=== PATIENT | female | born 1955 | race Two or more races ===

== ENCOUNTER 2020-12-28 13:12 | Emergency (ER) | payer OTHER, MEDICAID ==
[~2020-12-28] VITALS: Ht 152.4 cm; Wt 61.2 kg
[2020-12-28] MEDS ORDERED: ACETAMINOPHEN 500 MG TAB PO ONE (15:00)
[2020-12-28 15:03] VITALS: BP 124/74
== END 2020-12-28 16:12 | disposition home or self-care (01) ==
LOC: ER 13:12
DX: S83.91XA Sprain of unspecified site of right knee, initial encounter (principal); M11.261 Other chondrocalcinosis, right knee; E11.9 Type 2 diabetes mellitus without complications; W01.0XXA Fall on same level from slipping, tripping and stumbling without subsequent striking against object, initial encounter; Y93.01 Activity, walking, marching and hiking; Y92.89 Other specified places as the place of occurrence of the external cause; Y99.8 Other external cause status
CPT/HCPCS: 73562

== ENCOUNTER 2022-01-28 12:53 | Inpatient (IN) | payer OTHER, MEDICAID ==
[~2022-01-28] VITALS: Ht 152.4 cm; Wt 63.3 kg
[2022-01-28] MEDS ORDERED: SODIUM CHLORIDE 0.9% 500 ML IV ONE (13:30)
[2022-01-28] MEDS ORDERED: SODIUM CHLORIDE 0.9% 1,000 ML IV ONE (14:15)
[2022-01-28] MEDS ORDERED: NOREPINEPHRINE 8 MG/250ML KIT 250 ML IV SCH (14:15)
[2022-01-28 14:53] LABS: Basophils # (auto) 0 10 ^3/uL (0-0.2); Basophils % (auto) 0.2 % (0.0-2.0); Eosinophils # (auto) 0 10 ^3/uL (0-0.8); Eosinophils % (auto) 0.4 % (0.0-7.0); Hematocrit 33.2 % (36.0-46.0); Hemoglobin 11.2 g/dL (12.2-16.2); Lymphocytes # (auto) 1.2 10 ^3/uL (0.4-5.4); Lymphocytes % (auto) 13.3 % (10.0-50.0); Mean Corpuscular Hemoglobin 30.6 pg (28.0-32.0); Mean Corpuscular Hgb Conc. 33.6 g/dL (32.0-36.0); Mean Corpuscular Volume 91.1 fL (80.0-100.0); Monocytes # (auto) 0.5 10 ^3/uL (0-1.3); Monocytes % (auto) 5.4 % (0.0-12.0); Neutrophils # (auto) 7.5 10 ^3/uL (1.6-8.6); Neutrophils % (auto) 80.7 % (37.0-80.0); Red Blood Cells 3.64 10^6/uL (4.0-5.20); Red Cell Distribution Width 13.1 % (11.8-14.3); White Blood Cell 9.3 10^3/uL (4.4-10.8)
[2022-01-28 15:08] LABS: INR 1.21 (0.9-1.15); Partial Thromboplastin Time 25.4 sec (23.6-33.0)
[2022-01-28 15:12] LABS: Albumin 3.3 g/dL (3.4-5.0); Calcium 8.5 mg/dL (8.5-10.1); Potassium 4.2 mmol/L (3.5-5.1)
[2022-01-28 15:15] LABS: BUN/Creatinine Ratio 16.5
[2022-01-28 15:17] LABS: Bilirubin, Total 0.3 mg/dL (0.2-1.0); Total Protein 6.6 g/dL (6.4-8.2)
[2022-01-28] MEDS ORDERED: ASPirin 81 mg TAB PO ONE (18:30)
[2022-01-28 19:53] LABS: Urine Bacteria NONE SEEN /hpf (None Seen); Urine Blood Negative /uL (Negative); Urine Hyaline Cast MANY /lpf (0 - 2); Urine Mucus FEW (None Seen); Urine Specific Gravity 1.011 (1.001-1.035); Urine WBC <1 /hpf (0 - 5)
[2022-01-28] MEDS ORDERED: TEMAZEPAM 15 MG CAP PO PRN (21:30)
[2022-01-28] MEDS ORDERED: DEXTROSE (50%) 50ML SYRG IV PRN (21:30)
[2022-01-28] MEDS ORDERED: ACETAMINOPHEN 325 MG TAB PO PRN (21:30)
[2022-01-28] MEDS ORDERED: MORPHINE SULFATE INJ 2 MG/ml SYRG IV PRN (21:30)
[2022-01-28] MEDS ORDERED: NITROGLYCERIN 0.4 MG SL TAB SL PRN (21:30)
[2022-01-28] MEDS ORDERED: ONDANSETRON HCL 4 MG/2 ML VIAL IV PRN (21:30)
[2022-01-28] MEDS: ACCU-CHEK COMFORT CURVE STRIP VI SCH (22:00)
[2022-01-28] MEDS: InsuLIN REG 1unit/0.01ml Soln (100units/ml) SC SCH (22:00)
[2022-01-28] MEDS: ATORVASTATIN 20 MG TAB PO SCH (23:29)
[2022-01-29] VITALS (7 sets, daily range): BP systolic 114–145; BP diastolic 46–76
[2022-01-29] MEDS ORDERED: GABA300C10 PO (01:31)
[2022-01-29] MEDS ORDERED: ASPI-543 PO (01:31)
[2022-01-29 05:38] LABS: Basophils # (auto) 0 10 ^3/uL (0-0.2); Basophils % (auto) 0.5 % (0.0-2.0); Eosinophils # (auto) 0.2 10 ^3/uL (0-0.8); Eosinophils % (auto) 2.3 % (0.0-7.0); Hematocrit 34.4 % (36.0-46.0); Hemoglobin 11.9 g/dL (12.2-16.2); Lymphocytes # (auto) 2.9 10 ^3/uL (0.4-5.4); Lymphocytes % (auto) 41.4 % (10.0-50.0); Mean Corpuscular Hemoglobin 30.8 pg (28.0-32.0); Mean Corpuscular Hgb Conc. 34.5 g/dL (32.0-36.0); Mean Corpuscular Volume 89.4 fL (80.0-100.0); Monocytes # (auto) 0.6 10 ^3/uL (0-1.3); Monocytes % (auto) 7.8 % (0.0-12.0); Neutrophils # (auto) 3.4 10 ^3/uL (1.6-8.6); Red Blood Cells 3.85 10^6/uL (4.0-5.20); White Blood Cell 7.1 10^3/uL (4.4-10.8)
[2022-01-29 05:54] LABS: Potassium 3.7 mmol/L (3.5-5.1)
[2022-01-29 05:58] LABS: Albumin 3.3 g/dL (3.4-5.0)
[2022-01-29 06:05] LABS: Bilirubin, Total 0.5 mg/dL (0.2-1.0); Total Protein 6.4 g/dL (6.4-8.2)
[2022-01-29] MEDS: InsuLIN REG 1unit/0.01ml Soln (100units/ml) SC SCH ×2 (06:39→11:40)
[2022-01-29] MEDS: ACCU-CHEK COMFORT CURVE STRIP VI SCH ×2 (06:39→11:30)
[2022-01-29] MEDS: ENOXAPARIN SOD 40 MG/0.4 ML SYRINGE SC SCH (10:02)
[2022-01-29] MEDS: ASPirin 81 mg TAB PO SCH (10:02)
[2022-01-29] MEDS ORDERED: LORazepam 2MG/ML-1ML VIAL IV PRN (20:45)
[2022-01-29] MEDS: ATORVASTATIN 20 MG TAB PO SCH (20:59)
[2022-01-30 05:00] VITALS: BP 144/70
[2022-01-30 06:47] LABS: Hematocrit 36.5 % (36.0-46.0); Hemoglobin 12.6 g/dL (12.2-16.2)
[2022-01-30 06:48] LABS: INR 0.99 (0.9-1.15)
[2022-01-30 06:54] LABS: Calcium 9.1 mg/dL (8.5-10.1); Magnesium 2.2 mg/dL (1.6-2.6); Potassium 4.1 mmol/L (3.5-5.1)
[2022-01-30 06:57] LABS: BUN/Creatinine Ratio 20.3
[2022-01-30] MEDS: ENOXAPARIN SOD 40 MG/0.4 ML SYRINGE SC SCH (09:51)
[2022-01-30] MEDS: ASPirin 81 mg TAB PO SCH (09:51)
[2022-01-30 13:00] VITALS: BP 144/77
[2022-01-30] MEDS ORDERED: METF-371 PO ×2 (13:52→16:09)
[2022-01-30] MEDS ORDERED: CHOL20007 PO (13:55)
[2022-01-30] MEDS ORDERED: metFORMIN HYDROCHLORIDE 850 MG TAB PO ONE (14:00)
[2022-01-30] MEDS ORDERED: ATOR20TA50 PO (16:09)
[2022-01-30] MEDS ORDERED: ALLO300T2 PO (16:09)
[2022-01-30] MEDS ORDERED: INSLANTI SC (16:09)
[2022-01-30 16:20] VITALS: BP 104/63
[2022-01-30 16:48] VITALS: BP 104/63
== END 2022-01-30 18:20 | disposition home or self-care (01) | DRG 640 ==
LOC: EDBD 12:53 → ER 12:53 → TELE 21:24 → TELE-WESTW 23:47
PROVIDERS: ADMIT Nurse Practitioner; ATTEND Internal Medicine
DX: E86.0 Dehydration (principal); I21.A1 Myocardial infarction type 2; I95.9 Hypotension, unspecified; E11.9 Type 2 diabetes mellitus without complications; E55.9 Vitamin D deficiency, unspecified; E78.5 Hyperlipidemia, unspecified; M10.9 Gout, unspecified; Z20.822 Contact with and (suspected) exposure to COVID-19; Z83.3 Family history of diabetes mellitus
CPT/HCPCS: 36415; 70450; 70551; 71045; 74176; 80048; 80053; 80061; 81001; 82306; 82962; 83036; 83735; 83880; 84443; 84484; 85014; 85018; 85025; 85610; 85730; 86850; 86900; 86901; 93005; 93306; 93886; 95819; 96360; 96361; 99291; G0378; J1815

== ENCOUNTER → 2022-06-04 | Outpatient (CLI) | payer OTHER, MEDICAID ==
[~2022-06-04] MED LIST: ALLO300T2 PO; ASPI-543 PO; ATOR20TA50 PO; GABA300C10 PO; INSLANTI SC; METF-371 PO
[2022-06-04 09:53] LABS: Basophils # (auto) 0 10 ^3/uL (0-0.2); Basophils % (auto) 0.6 % (0.0-2.0); Eosinophils # (auto) 0.1 10 ^3/uL (0-0.8); Eosinophils % (auto) 2.9 % (0.0-7.0); Hematocrit 36.5 % (36.0-46.0); Hemoglobin 12.2 g/dL (12.2-16.2); Lymphocytes # (auto) 2.6 10 ^3/uL (0.4-5.4); Lymphocytes % (auto) 50.4 % (10.0-50.0); Mean Corpuscular Hemoglobin 30.3 pg (28.0-32.0); Mean Corpuscular Hgb Conc. 33.4 g/dL (32.0-36.0); Mean Corpuscular Volume 90.8 fL (80.0-100.0); Monocytes # (auto) 0.4 10 ^3/uL (0-1.3); Monocytes % (auto) 8.1 % (0.0-12.0); Neutrophils # (auto) 1.9 10 ^3/uL (1.6-8.6); Red Blood Cells 4.02 10^6/uL (4.0-5.20); Red Cell Distribution Width 13.4 % (11.8-14.3); White Blood Cell 5.1 10^3/uL (4.4-10.8)
[2022-06-04 10:17] LABS: Urine Bacteria NONE SEEN /hpf (None Seen); Urine Blood Negative /uL (Negative); Urine Specific Gravity 1.011 (1.001-1.035); Urine WBC <1 /hpf (0 - 5)
[2022-06-04 10:25] LABS: Potassium 3.9 mmol/L (3.5-5.1)
[2022-06-04 10:29] LABS: BUN/Creatinine Ratio 18.3
== END | disposition home or self-care (01) ==
LOC: LAB 09:26
PROVIDERS: ATTEND Student in an Organized Health Care Education/Training Program
DX: Z12.11 Encounter for screening for malignant neoplasm of colon (principal); E11.9 Type 2 diabetes mellitus without complications; M25.50 Pain in unspecified joint
CPT/HCPCS: 36415; 80048; 81001; 83036; 84550; 85025; 86038; 86431

== ENCOUNTER → 2022-10-10 | Outpatient (CLI) | payer OTHER, MEDICAID ==
[2022-10-10 10:40] LABS: Basophils # (auto) 0 10 ^3/uL (0-0.2); Basophils % (auto) 0.7 % (0.0-2.0); Eosinophils # (auto) 0.1 10 ^3/uL (0-0.8); Eosinophils % (auto) 2.3 % (0.0-7.0); Hemoglobin 12.2 g/dL (12.2-16.2); Lymphocytes # (auto) 2.5 10 ^3/uL (0.4-5.4); Mean Corpuscular Hemoglobin 29.8 pg (28.0-32.0); Mean Corpuscular Volume 90.3 fL (80.0-100.0); Monocytes # (auto) 0.4 10 ^3/uL (0-1.3); Monocytes % (auto) 7.7 % (0.0-12.0); Neutrophils # (auto) 2.3 10 ^3/uL (1.6-8.6); Neutrophils % (auto) 43.3 % (37.0-80.0); Nucleated Red Blood Cells % 0.2 %; Red Blood Cells 4.09 10^6/uL (4.0-5.20); Red Cell Distribution Width 13.5 % (11.8-14.3); White Blood Cell 5.4 10^3/uL (4.4-10.8)
[2022-10-10 10:52] LABS: Urine Bacteria FEW /hpf (None Seen); Urine Blood Negative /uL (Negative); Urine Specific Gravity 1.012 (1.001-1.035); Urine WBC 3 /hpf (0 - 5)
[2022-10-10 11:18] LABS: Albumin 3.6 g/dL (3.4-5.0); BUN/Creatinine Ratio 19.4; Bilirubin, Total 0.6 mg/dL (0.2-1.0); Potassium 4.1 mmol/L (3.5-5.1); Total Protein 7.2 g/dL (6.4-8.2)
== END | disposition home or self-care (01) ==
LOC: LAB 10:16
PROVIDERS: ATTEND Student in an Organized Health Care Education/Training Program
DX: Z12.11 Encounter for screening for malignant neoplasm of colon (principal); E11.9 Type 2 diabetes mellitus without complications; I10 Essential (primary) hypertension
CPT/HCPCS: 36415; 80053; 80061; 81001; 83036; 84443; 85025

== ENCOUNTER 2023-01-22 07:25 | Day surgery (SDC) | payer OTHER, MEDICAID ==
[2023-01-21 10:57] LABS: Basophils # (auto) 0 10 ^3/uL (0-0.2); Basophils % (auto) 0.4 % (0.0-2.0); Eosinophils # (auto) 0.1 10 ^3/uL (0-0.8); Eosinophils % (auto) 1.4 % (0.0-7.0); Hematocrit 36.3 % (36.0-46.0); Hemoglobin 12.2 g/dL (12.2-16.2); Lymphocytes # (auto) 2.4 10 ^3/uL (0.4-5.4); Lymphocytes % (auto) 42.5 % (10.0-50.0); Mean Corpuscular Hemoglobin 30.4 pg (28.0-32.0); Mean Corpuscular Hgb Conc. 33.6 g/dL (32.0-36.0); Mean Corpuscular Volume 90.6 fL (80.0-100.0); Monocytes # (auto) 0.5 10 ^3/uL (0-1.3); Monocytes % (auto) 8.5 % (0.0-12.0); Neutrophils # (auto) 2.6 10 ^3/uL (1.6-8.6); Neutrophils % (auto) 47.2 % (37.0-80.0); Red Cell Distribution Width 13.2 % (11.8-14.3); White Blood Cell 5.6 10^3/uL (4.4-10.8)
[2023-01-21 11:10] LABS: INR 1.03 (0.9-1.15); Partial Thromboplastin Time 25.1 sec (24.6-33.4)
[2023-01-21 11:47] LABS: Albumin 3.5 g/dL (3.4-5.0); Calcium 9.2 mg/dL (8.5-10.1)
[2023-01-21 11:50] LABS: BUN/Creatinine Ratio 23.9 (10.0-20.0)
[2023-01-21 11:53] LABS: Bilirubin, Total 0.4 mg/dL (0.2-1.0); Total Protein 7.7 g/dL (6.4-8.2)
[~2023-01-22] VITALS: Ht 152.4 cm; Wt 60.8 kg
[2023-01-22] VITALS (7 sets, daily range): BP systolic 117–139; BP diastolic 63–75
[~2023-01-22 07:25] MED LIST changes: +GABA-1250 PO; -GABA300C10 PO
[2023-01-22] MEDS ORDERED: IODIXANOL 320MG/ML 100ML BTL IV ONE (08:57)
[2023-01-22] MEDS ORDERED: LIDOCAINE 2%HCL (LOCAL ANESTH.) INJ 20ML MDV ONE (08:57)
[2023-01-22] MEDS ORDERED: ANGIOMAX 250 MG VIAL IV ONE (09:18)
[2023-01-22] MEDS ORDERED: MIDAZOLAM HCL 2MG/2ML 2ml VIAL (1mg/ml) ONE (09:19)
[2023-01-22] MEDS ORDERED: VERAPAMIL 2.5MG/ML INJ 2ML VIAL IV ONE (09:19)
[2023-01-22] MEDS ORDERED: SODIUM CHL 0.9% 50 ML ONE (09:19)
[2023-01-22] MEDS ORDERED: HEPARIN SODIUM (PORCINE) 5000 UNITS/ML 1ML VIAL ONE (09:19)
[2023-01-22] MEDS ORDERED: fentaNYL CITRATE 100 MCG/2 ML VL ONE (09:19)
[2023-01-22] MEDS ORDERED: CLOPIDOGREL 300 MG TAB ONE (10:10)
[2023-01-22] MEDS ORDERED: ASPirin 325 MG TAB ONE (10:10)
== END 2023-01-22 12:35 | disposition home or self-care (01) ==
LOC: CATH 07:25
PROVIDERS: ATTEND Internal Medicine
DX: I25.10 Atherosclerotic heart disease of native coronary artery without angina pectoris (principal); R94.39 Abnormal result of other cardiovascular function study; I10 Essential (primary) hypertension; E11.9 Type 2 diabetes mellitus without complications; Z79.82 Long term (current) use of aspirin; Z79.4 Long term (current) use of insulin; Z79.84 Long term (current) use of oral hypoglycemic drugs; Z79.899 Other long term (current) drug therapy
CPT/HCPCS: 36415; 76937; 80053; 82962; 85025; 85610; 85730; 93458; 93571; C1725; C1726; C1769; C1875; C1887; C1894; C9600; J0583; J1644; J2250; J3010; Q9967; 99152; 99153

== ENCOUNTER → 2023-02-03 | Outpatient (CLI) | payer OTHER ==
[2023-02-03 12:11] LABS: Calcium 9.3 mg/dL (8.5-10.1); Potassium 3.9 mmol/L (3.5-5.1)
[2023-02-03 12:14] LABS: BUN/Creatinine Ratio 25.9 (10.0-20.0)
[2023-02-03 12:27] LABS: Urine Bacteria NONE SEEN /hpf (None Seen); Urine Blood Negative /uL (Negative); Urine Specific Gravity 1.014 (1.001-1.035); Urine WBC <1 /hpf (0 - 5)
== END | disposition home or self-care (01) ==
LOC: LAB 10:39
PROVIDERS: ATTEND Student in an Organized Health Care Education/Training Program
DX: Z12.11 Encounter for screening for malignant neoplasm of colon (principal); E11.9 Type 2 diabetes mellitus without complications; I10 Essential (primary) hypertension
CPT/HCPCS: 36415; 80048; 81001; 83036

== ENCOUNTER → 2023-06-05 | Outpatient (CLI) | payer OTHER, MEDICAID ==
[2023-06-05 10:31] LABS: Basophils # (auto) 0 10 ^3/uL (0-0.2); Basophils % (auto) 0.5 % (0.0-2.0); Eosinophils # (auto) 0.4 10 ^3/uL (0-0.8); Eosinophils % (auto) 7.2 % (0.0-7.0); Hemoglobin 12.3 g/dL (12.2-16.2); Lymphocytes # (auto) 2.4 10 ^3/uL (0.4-5.4); Lymphocytes % (auto) 42.7 % (10.0-50.0); Mean Corpuscular Hemoglobin 30.6 pg (28.0-32.0); Mean Corpuscular Hgb Conc. 33.3 g/dL (32.0-36.0); Mean Corpuscular Volume 91.9 fL (80.0-100.0); Monocytes # (auto) 0.4 10 ^3/uL (0-1.3); Monocytes % (auto) 7.1 % (0.0-12.0); Neutrophils # (auto) 2.3 10 ^3/uL (1.6-8.6); Neutrophils % (auto) 42.5 % (37.0-80.0); Red Blood Cells 4.02 10^6/uL (4.0-5.20); Red Cell Distribution Width 13.8 % (11.8-14.3); White Blood Cell 5.5 10^3/uL (4.4-10.8)
[2023-06-05 11:08] LABS: Alanine Aminotransferase 35 U/L (7-40); Alkaline Phosphatase 75 U/L (46-116); Anion Gap 6 (5-15); Aspartate Aminotransferase 23 U/L (13-40); BUN/Creatinine Ratio 15.6 (10.0-20.0); Blood Urea Nitrogen 10 mg/dL (9-23); Calcium 9.6 mg/dL (8.5-10.1); Carbon Dioxide 29 mmol/L (20-30); Chloride 107 mmol/L (98-107); Glucose 86 mg/dL (74-106); Potassium 4.1 mmol/L (3.5-5.1); Sodium 142 mmol/L (136-145)
[2023-06-05 11:09] LABS: Albumin 4.3 g/dL (3.2-4.8); Bilirubin, Total 0.7 mg/dL (0.2-1.0); Total Protein 7.3 g/dL (5.7-8.2)
[2023-06-05 11:13] LABS: Creatinine, Urine 53.98 mg/dL (30.0-125.0)
[2023-06-05 11:15] LABS: Micro Albumin < 3.0 mg/L (<30.0)
[2023-06-05 11:42] LABS: Urine Bacteria NONE SEEN /hpf (None Seen); Urine Blood Negative /uL (Negative); Urine Clarity Clear (Clear); Urine Color Colorless (Yellow); Urine Protein, UAD Negative (Negative); Urine Specific Gravity 1.012 (1.001-1.035); Urine Urobilinogen Normal (Negative); Urine WBC 1 /hpf (0 - 5); Urine pH 6.5 (5.0-8.0)
== END | disposition home or self-care (01) ==
LOC: LAB 10:18
PROVIDERS: ATTEND Student in an Organized Health Care Education/Training Program
DX: E11.9 Type 2 diabetes mellitus without complications (principal); I10 Essential (primary) hypertension
CPT/HCPCS: 36415; 80053; 81001; 82043; 82570; 83036; 85025

== ENCOUNTER → 2023-07-23 | Outpatient (CLI) | payer OTHER, MEDICAID ==
[2023-07-23 10:11] LABS: Basophils # (auto) 0 10 ^3/uL (0-0.2); Basophils % (auto) 0.4 % (0.0-2.0); Eosinophils # (auto) 0.2 10 ^3/uL (0-0.8); Eosinophils % (auto) 2.9 % (0.0-7.0); Hematocrit 37.5 % (36.0-46.0); Hemoglobin 12.4 g/dL (12.2-16.2); Lymphocytes # (auto) 2.9 10 ^3/uL (0.4-5.4); Lymphocytes % (auto) 52.6 % (10.0-50.0); Mean Corpuscular Hemoglobin 30.1 pg (28.0-32.0); Mean Corpuscular Hgb Conc. 32.9 g/dL (32.0-36.0); Mean Corpuscular Volume 91.3 fL (80.0-100.0); Monocytes # (auto) 0.5 10 ^3/uL (0-1.3); Monocytes % (auto) 8.4 % (0.0-12.0); Neutrophils % (auto) 35.7 % (37.0-80.0); Nucleated Red Blood Cells % 0.1 %; Red Blood Cells 4.11 10^6/uL (4.0-5.20); Red Cell Distribution Width 13.1 % (11.8-14.3); White Blood Cell 5.6 10^3/uL (4.4-10.8)
[2023-07-23 11:04] LABS: Alanine Aminotransferase 28 U/L (7-40); Albumin 4.4 g/dL (3.2-4.8); Alkaline Phosphatase 93 U/L (46-116); Aspartate Aminotransferase 22 U/L (13-40); BUN/Creatinine Ratio 25.5 (10.0-20.0); Blood Urea Nitrogen 14 mg/dL (9-23); Calcium 9.9 mg/dL (8.5-10.1); Chloride 107 mmol/L (98-107); Glucose 70 mg/dL (74-106); Potassium 4.1 mmol/L (3.5-5.1); Sodium 140 mmol/L (136-145)
[2023-07-23 11:05] LABS: Bilirubin, Total 0.6 mg/dL (0.2-1.0); Total Protein 7.2 g/dL (5.7-8.2)
[2023-07-23 11:29] LABS: T3 Total 1.11 ng/mL (0.60-1.81)
[2023-07-23 12:08] LABS: Follicle Stimulating Hormone 38.17 IU/L (SEE BELOW)
[2023-07-23 12:14] LABS: Anion Gap 6 (5-15); Carbon Dioxide 27 mmol/L (20-30)
[2023-07-24 07:06] LABS: Estradiol <5.0 pg/mL (0.0-54.7); Thyroid Peroxidase (TPO) Ab 9 IU/mL (0-34); Thyroxine (T4) 8.3 ug/dL (4.5-12.0)
== END | disposition home or self-care (01) ==
LOC: LAB 09:51
PROVIDERS: ATTEND Obstetrics & Gynecology
DX: Z13.220 Encounter for screening for lipoid disorders (principal); E55.9 Vitamin D deficiency, unspecified; E53.9 Vitamin B deficiency, unspecified; E34.9 Endocrine disorder, unspecified; E07.89 Other specified disorders of thyroid; N95.1 Menopausal and female climacteric states
CPT/HCPCS: 36415; 80053; 82306; 82607; 82670; 83001; 84144; 84403; 84436; 84443; 84480; 85025; 86376

== ENCOUNTER → 2023-09-12 | Outpatient (CLI) | payer OTHER, MEDICAID ==
[2023-09-12 11:05] LABS: Basophils # (auto) 0 10 ^3/uL (0-0.2); Basophils % (auto) 0.5 % (0.0-2.0); Eosinophils # (auto) 0.1 10 ^3/uL (0-0.8); Eosinophils % (auto) 2.6 % (0.0-7.0); Hematocrit 37.1 % (36.0-46.0); Hemoglobin 12.3 g/dL (12.2-16.2); Lymphocytes # (auto) 2.3 10 ^3/uL (0.4-5.4); Lymphocytes % (auto) 49.4 % (10.0-50.0); Mean Corpuscular Hemoglobin 30.6 pg (28.0-32.0); Mean Corpuscular Hgb Conc. 33.3 g/dL (32.0-36.0); Mean Corpuscular Volume 91.9 fL (80.0-100.0); Monocytes # (auto) 0.4 10 ^3/uL (0-1.3); Monocytes % (auto) 7.8 % (0.0-12.0); Neutrophils # (auto) 1.9 10 ^3/uL (1.6-8.6); Neutrophils % (auto) 39.7 % (37.0-80.0); Nucleated Red Blood Cells % 0.1 %; Red Blood Cells 4.03 10^6/uL (4.0-5.20); Red Cell Distribution Width 13.1 % (11.8-14.3); White Blood Cell 4.7 10^3/uL (4.4-10.8)
[2023-09-12 11:20] LABS: Urine Blood Negative /uL (Negative); Urine Clarity Clear (Clear); Urine Color Colorless (Yellow); Urine Protein, UAD Negative (Negative); Urine Specific Gravity 1.009 (1.001-1.035); Urine Urobilinogen Normal (Negative)
[2023-09-12 12:02] LABS: Alanine Aminotransferase 36 U/L (7-40); Albumin 4.3 g/dL (3.2-4.8); Alkaline Phosphatase 96 U/L (46-116); Anion Gap 5 (5-15); Aspartate Aminotransferase 26 U/L (13-40); BUN/Creatinine Ratio 16.7 (10.0-20.0); Bilirubin, Total 0.7 mg/dL (0.2-1.0); Blood Urea Nitrogen 10 mg/dL (9-23); Carbon Dioxide 29 mmol/L (20-30); Chloride 108 mmol/L (98-107); Cholesterol 153 mg/dL (< 200); Glucose 77 mg/dL (74-106); HDL Cholesterol 56 mg/dL (40-59); LDL Cholesterol 86 mg/dL (< 100); Potassium 4.2 mmol/L (3.5-5.1); Sodium 142 mmol/L (136-145); Triglycerides 78 mg/dL (< 150)
[2023-09-12 12:03] LABS: Total Protein 7.3 g/dL (5.7-8.2)
== END | disposition home or self-care (01) ==
LOC: LAB 10:53
DX: E11.42 Type 2 diabetes mellitus with diabetic polyneuropathy (principal); E11.65 Type 2 diabetes mellitus with hyperglycemia
CPT/HCPCS: 36415; 80053; 80061; 81003; 83036; 85025

== ENCOUNTER → 2023-12-08 | Outpatient (CLI) | payer OTHER, MEDICAID ==
[2023-12-08 10:54] LABS: Urine Bacteria None Seen /hpf (None Seen)
[2023-12-08 11:09] LABS: Basophils # (auto) 0 10 ^3/uL (0-0.2); Basophils % (auto) 0.3 % (0.0-2.0); Eosinophils # (auto) 0.1 10 ^3/uL (0-0.8); Eosinophils % (auto) 1.1 % (0.0-7.0); Hematocrit 37.3 % (36.0-46.0); Hemoglobin 12.2 g/dL (12.2-16.2); Lymphocytes # (auto) 4.3 10 ^3/uL (0.4-5.4); Lymphocytes % (auto) 49.5 % (10.0-50.0); Mean Corpuscular Hemoglobin 30.3 pg (28.0-32.0); Mean Corpuscular Hgb Conc. 32.7 g/dL (32.0-36.0); Mean Corpuscular Volume 92.7 fL (80.0-100.0); Monocytes # (auto) 0.6 10 ^3/uL (0-1.3); Monocytes % (auto) 7.2 % (0.0-12.0); Neutrophils # (auto) 3.7 10 ^3/uL (1.6-8.6); Neutrophils % (auto) 41.9 % (37.0-80.0); Nucleated Red Blood Cells % 0.1 %; Red Blood Cells 4.03 10^6/uL (4.0-5.20); Red Cell Distribution Width 13.9 % (11.8-14.3); White Blood Cell 8.8 10^3/uL (4.4-10.8)
[2023-12-08 11:35] LABS: Urine Blood Negative /uL (Negative); Urine Clarity Clear (Clear); Urine Color Light-Yellow (Yellow); Urine Protein, UAD Negative (Negative); Urine Specific Gravity 1.012 (1.001-1.035); Urine Urobilinogen Normal (Negative); Urine WBC <1 /hpf (0 - 5)
[2023-12-08 11:47] LABS: Creatinine, Urine 39.67 mg/dL (30.0-125.0)
[2023-12-08 11:50] LABS: Alanine Aminotransferase 24 U/L (7-40); Albumin 4.5 g/dL (3.2-4.8); Alkaline Phosphatase 88 U/L (46-116); Anion Gap 7 (5-15); Aspartate Aminotransferase 20 U/L (13-40); BUN/Creatinine Ratio 22.4 (10.0-20.0); Blood Urea Nitrogen 13 mg/dL (9-23); Calcium 10.2 mg/dL (8.5-10.1); Carbon Dioxide 27 mmol/L (20-30); Chloride 105 mmol/L (98-107); Glucose 83 mg/dL (74-106); LDL Cholesterol 95 mg/dL (< 100); Micro Albumin < 3.0 mg/L (<30.0); Potassium 3.9 mmol/L (3.5-5.1); Sodium 139 mmol/L (136-145); Triglycerides 71 mg/dL (< 150)
[2023-12-08 11:51] LABS: Bilirubin, Total 0.6 mg/dL (0.2-1.0); Cholesterol 180 mg/dL (< 200); HDL Cholesterol 69 mg/dL (40-59); Total Protein 7.4 g/dL (5.7-8.2)
== END | disposition home or self-care (01) ==
LOC: LAB 10:44
PROVIDERS: ATTEND Student in an Organized Health Care Education/Training Program
DX: I10 Essential (primary) hypertension (principal); E11.9 Type 2 diabetes mellitus without complications
CPT/HCPCS: 36415; 80053; 80061; 81001; 82043; 82570; 83036; 85025

== ENCOUNTER → 2024-01-26 | Outpatient (CLI) | payer OTHER ==
[2024-01-26 10:10] LABS: Basophils # (auto) 0 10 ^3/uL (0-0.2); Basophils % (auto) 0.6 % (0.0-2.0); Eosinophils # (auto) 0.1 10 ^3/uL (0-0.8); Hematocrit 34.8 % (36.0-46.0); Hemoglobin 11.7 g/dL (12.2-16.2); Lymphocytes # (auto) 1.8 10 ^3/uL (0.4-5.4); Lymphocytes % (auto) 37.4 % (10.0-50.0); Mean Corpuscular Hemoglobin 31.7 pg (28.0-32.0); Mean Corpuscular Hgb Conc. 33.7 g/dL (32.0-36.0); Mean Corpuscular Volume 94.3 fL (80.0-100.0); Monocytes # (auto) 0.4 10 ^3/uL (0-1.3); Monocytes % (auto) 8.1 % (0.0-12.0); Neutrophils # (auto) 2.5 10 ^3/uL (1.6-8.6); Neutrophils % (auto) 51.9 % (37.0-80.0); Red Blood Cells 3.69 10^6/uL (4.0-5.20); White Blood Cell 4.9 10^3/uL (4.4-10.8)
[2024-01-26 11:00] LABS: Follicle Stimulating Hormone 23.39 IU/L (SEE BELOW)
== END | disposition home or self-care (01) ==
LOC: LAB 09:45
PROVIDERS: ATTEND Obstetrics & Gynecology
DX: E07.89 Other specified disorders of thyroid (principal); E34.9 Endocrine disorder, unspecified; E53.9 Vitamin B deficiency, unspecified; E55.9 Vitamin D deficiency, unspecified; N95.1 Menopausal and female climacteric states
CPT/HCPCS: 36415; 82670; 83001; 84144; 84403; 85025

== ENCOUNTER 2024-02-09 06:01 | Inpatient (IN) | payer OTHER ==
[2024-02-06 11:19] LABS: Basophils # (auto) 0 10 ^3/uL (0-0.2); Basophils % (auto) 0.5 % (0.0-2.0); Eosinophils # (auto) 0.1 10 ^3/uL (0-0.8); Eosinophils % (auto) 1.5 % (0.0-7.0); Hematocrit 37.1 % (36.0-46.0); Hemoglobin 12.4 g/dL (12.2-16.2); Lymphocytes # (auto) 2.4 10 ^3/uL (0.4-5.4); Mean Corpuscular Hemoglobin 31.2 pg (28.0-32.0); Mean Corpuscular Hgb Conc. 33.6 g/dL (32.0-36.0); Monocytes # (auto) 0.5 10 ^3/uL (0-1.3); Monocytes % (auto) 8.3 % (0.0-12.0); Neutrophils # (auto) 2.7 10 ^3/uL (1.6-8.6); Neutrophils % (auto) 47.7 % (37.0-80.0); Nucleated Red Blood Cells % 0.1 %; Red Blood Cells 3.98 10^6/uL (4.0-5.20); Red Cell Distribution Width 13.8 % (11.8-14.3); White Blood Cell 5.7 10^3/uL (4.4-10.8)
[2024-02-06 11:31] LABS: Urine Bacteria FEW /hpf (None Seen); Urine Blood Negative /uL (Negative); Urine Clarity Clear (Clear); Urine Color Light-Yellow (Yellow); Urine Protein, UAD Negative (Negative); Urine Specific Gravity 1.012 (1.001-1.035); Urine Urobilinogen Normal (Negative); Urine WBC <1 /hpf (0 - 5); Urine pH 5.5 (5.0-9.0)
[2024-02-06 11:40] LABS: Alanine Aminotransferase 23 U/L (7-40); Albumin 4.4 g/dL (3.2-4.8); Alkaline Phosphatase 78 U/L (46-116); Anion Gap 5 (5-15); Aspartate Aminotransferase 15 U/L (13-40); BUN/Creatinine Ratio 15.2 (10.0-20.0); Bilirubin, Total 0.5 mg/dL (0.2-1.0); Blood Urea Nitrogen 10 mg/dL (9-23); Calcium 10.3 mg/dL (8.5-10.1); Carbon Dioxide 26 mmol/L (20-30); Chloride 108 mmol/L (98-107); Glucose 157 mg/dL (74-106); Potassium 4.4 mmol/L (3.5-5.1); Sodium 139 mmol/L (136-145); Total Protein 7.3 g/dL (5.7-8.2)
[2024-02-06 11:45] LABS: INR 1.05 (0.9-1.15); Partial Thromboplastin Time 24.5 SEC (24.5-34.5); Prothrombin Time 11.1 sec (9.3-11.8)
[~2024-02-09] VITALS: Ht 152.4 cm; Wt 69.1 kg
[~2024-02-09 06:01] MED LIST changes: +CIPR500T4 PO; +HYDR-4902 PO; +TRAM50TA2 PO
[2024-02-09] MEDS: ceFAZolin 2 GM/D5W50ml 50 ML IV ONE (07:01)
[2024-02-09] MEDS: SUCCINYLCHOLINE CHLORIDE 20 MG/ML 10ML VIAL IV ONE (07:03)
[2024-02-09] MEDS: ROCURONIUM 10MG/ML 10ML VIAL IV ONE (07:03)
[2024-02-09] MEDS ORDERED: HYDROmorphone HCL 2 MG/ML VL/or syr ONE (07:08)
[2024-02-09] MEDS ORDERED: NEOSTIGMINE 1 MG/ML INJ (10mg/10ML VIAL) ONE (07:08)
[2024-02-09] MEDS ORDERED: PROPOFOL 10 MG/ML 20 ML IV ONE (07:08)
[2024-02-09] MEDS ORDERED: ONDANSETRON HCL 4 MG/2 ML VIAL ONE (07:08)
[2024-02-09] MEDS ORDERED: KETAMINE 50mg/ML 1ml syringe ONE (07:08)
[2024-02-09] MEDS ORDERED: GLYCOPYRROLATE 0.2 MG/ML 1ML VIAL ONE (07:08)
[2024-02-09] MEDS ORDERED: fentaNYL CITRATE 5 ML ONE (07:08)
[2024-02-09] MEDS ORDERED: SODIUM CHLORIDE LOCK 40 ML ONE (07:08)
[2024-02-09] MEDS ORDERED: MIDAZOLAM HCL 2MG/2ML 2ml VIAL (1mg/ml) ONE (07:08)
[2024-02-09] MEDS ORDERED: LIDOCAINE 1% INJ PF 5ML AMP ONE (07:08)
[2024-02-09] MEDS: LIDOCAINE 1% (LOCAL ANESTH.) PF 5ml SDV ONE (07:09)
[2024-02-09] MEDS: LIDOCAINE 2% JELLY 11ml (GLYDO) ONE (07:10)
[2024-02-09] MEDS: ACCU-CHEK COMFORT CURVE STRIP VI ONE (07:30)
[2024-02-09] MEDS ORDERED: MORPHINE SULFATE INJ 2 MG/ml SYRG IV PRN ×2 (07:30→08:15)
[2024-02-09] MEDS ORDERED: HYDROmorphone HCL 2 MG/ML VL/or syr IV PRN (07:30)
[2024-02-09] MEDS ORDERED: fentaNYL CITRATE 100 MCG/2 ML VL IV PRN (07:30)
[2024-02-09] MEDS: METOCLOPRAMIDE HCL 5MG/ml INJ 2ml VIAL IV ONE (07:30)
[2024-02-09] MEDS ORDERED: LIDOCAINE W/ EPINEPHRINE 1% 20ML VIAL ONE (08:13)
[2024-02-09] MEDS: ceFAZolin 1GM/50ML 50 ML IV ONE (08:15)
[2024-02-09] MEDS: SODIUM CHLORIDE 0.9% 1,000 ML IV SCH (08:15)
[2024-02-09] MEDS ORDERED: ACETAMINOPHEN 500 MG TAB PO PRN (08:15)
[2024-02-09] MEDS ORDERED: NITROGLYCERIN 0.4 MG SL TAB SL PRN (08:15)
[2024-02-09] MEDS: BUPIVACAINE 0.25% INJ 50ML VIAL ONE (09:53)
[2024-02-09] MEDS: METHYLENE BLUE 0.5% 5MG/ML 10ml AMP IV ONE (09:54)
[2024-02-09] MEDS: ASPirin-EC 81 mg tab PO SCH (10:00)
[2024-02-09] MEDS: GABAPENTIN 300 MG CAP PO SCH (10:00)
[2024-02-09] MEDS: ALLOPURINOL 100 MG TAB PO SCH (10:00)
[2024-02-09] MEDS ORDERED: MEPERIDINE HCL (25 MG/ML) 1ML VIAL ONE (10:27)
[2024-02-09] MEDS: CONJ ESTROGENS 0.625MG/GM VAG CRM 30GM PV ONE (10:49)
[2024-02-09 11:12] VITALS: PULSE 79; RESP 10; O2SAT 94
[2024-02-09] MEDS: HYDROmorphone HCL 2 MG/ML VL/or syr ONE (12:30)
[2024-02-09] MEDS: HYDROmorphone HCL 2 MG/ML VL/or syr IV PRN (13:00)
[2024-02-09] MEDS: traMADol HCL 50 MG TAB PO PRN (14:09)
[2024-02-09 16:22] VITALS: BP 137/70; PULSE 89; RESP 18; TEMP 97.8; O2SAT 96
[2024-02-09] MEDS: MORPHINE SULFATE 4 MG/ML SYR/VIAL IV PRN (18:04)
[2024-02-09 20:00] VITALS: PULSE 87; RESP 16; O2SAT 98
[2024-02-09 20:57] VITALS: BP 118/57; PULSE 70; RESP 17; TEMP 97.6; O2SAT 96
[2024-02-09] MEDS: metFORMIN HYDROCHLORIDE 500 MG TAB PO SCH (22:00)
[2024-02-09] MEDS: ONDANSETRON HCL 4 MG/2 ML VIAL IV PRN (22:30)
[2024-02-09] MEDS: INSULIN LANTUS (GLARGINE) 1 /0.01ml (100units/ml) SC SCH (22:37)
[2024-02-10] MEDS ORDERED: DEXTROSE (50%) 50ML SYRG IV PRN (00:30)
[2024-02-10 04:49] VITALS: BP 104/54; PULSE 74; RESP 17; TEMP 97.4; O2SAT 95
[2024-02-10] MEDS: ACCU-CHEK COMFORT CURVE STRIP VI SCH (05:40)
[2024-02-10] MEDS: InsuLIN REG 1unit/0.01ml Soln (100units/ml) SC SCH (05:41)
[2024-02-10 09:00] VITALS: BP 101/51; PULSE 74; RESP 20; TEMP 98.1; O2SAT 94
[2024-02-10 13:00] VITALS: BP 115/76; PULSE 111; RESP 20; TEMP 98.1; O2SAT 96
[2024-02-10 17:00] VITALS: BP 132/58; PULSE 81; RESP 20; TEMP 98; O2SAT 95
[2024-02-10] MEDS ORDERED: METF-929 PO (17:26)
[2024-02-10] MEDS ORDERED: DOCU-94 PO (17:31)
[2024-02-10] MEDS ORDERED: ESTR0.1C5 VA (17:31)
[2024-02-10] MEDS ORDERED: PROG200C21 PO (17:31)
[2024-02-10 20:00] VITALS: RESP 16; O2SAT 98
[2024-02-10 22:00] VITALS: BP 125/66; PULSE 88; RESP 17; TEMP 98.4; O2SAT 95
[2024-02-11 01:00] VITALS: BP 121/62; PULSE 84; RESP 16; TEMP 98.1; O2SAT 95
[2024-02-11 05:00] VITALS: BP 140/64; PULSE 86; RESP 16; TEMP 98.7; O2SAT 95
[2024-02-11 07:11] LABS: Basophils # (auto) 0 10 ^3/uL (0-0.2); Basophils % (auto) 0.3 % (0.0-2.0); Eosinophils # (auto) 0 10 ^3/uL (0-0.8); Eosinophils % (auto) 0.3 % (0.0-7.0); Hematocrit 33.1 % (36.0-46.0); Hemoglobin 11.4 g/dL (12.2-16.2); Lymphocytes # (auto) 1.7 10 ^3/uL (0.4-5.4); Lymphocytes % (auto) 16.4 % (10.0-50.0); Mean Corpuscular Hemoglobin 32.2 pg (28.0-32.0); Mean Corpuscular Hgb Conc. 34.5 g/dL (32.0-36.0); Mean Corpuscular Volume 93.3 fL (80.0-100.0); Monocytes # (auto) 0.6 10 ^3/uL (0-1.3); Monocytes % (auto) 6.3 % (0.0-12.0); Neutrophils # (auto) 7.8 10 ^3/uL (1.6-8.6); Neutrophils % (auto) 76.7 % (37.0-80.0); Red Blood Cells 3.55 10^6/uL (4.0-5.20); Red Cell Distribution Width 13.4 % (11.8-14.3); White Blood Cell 10.1 10^3/uL (4.4-10.8)
[2024-02-11 07:16] LABS: Alanine Aminotransferase 19 U/L (7-40); Alkaline Phosphatase 67 U/L (46-116); Anion Gap 5 (5-15); Aspartate Aminotransferase 15 U/L (13-40); Bilirubin, Total 0.7 mg/dL (0.2-1.0); Calcium 9.5 mg/dL (8.5-10.1); Carbon Dioxide 26 mmol/L (20-30); Chloride 105 mmol/L (98-107); Glucose 193 mg/dL (74-106); Potassium 3.7 mmol/L (3.5-5.1); Sodium 136 mmol/L (136-145); Total Protein 6.6 g/dL (5.7-8.2)
[2024-02-11 07:18] LABS: Blood Urea Nitrogen < 5 mg/dL (9-23)
[2024-02-11 09:00] VITALS: BP 139/69; PULSE 87; RESP 20; TEMP 98.5; O2SAT 94
[2024-02-11 13:00] VITALS: BP 118/54; PULSE 81; RESP 20; TEMP 98.4; O2SAT 95
[2024-02-11] MEDS ORDERED: DOCUSATE SOD 100 MG CAP PO PRN (15:30)
[2024-02-11 16:33] VITALS: BP 112/58; PULSE 81; RESP 18; TEMP 98.6; O2SAT 94
== END 2024-02-11 18:00 | disposition home or self-care (01) | DRG 743 ==
LOC: SUR 06:01 → OVERFLOW 08:18 → WEST WING 14:45
PROVIDERS: ADMIT Obstetrics & Gynecology; ATTEND Internal Medicine
PROC: 0UT24ZZ Resection of Bilateral Ovaries, Percutaneous Endoscopic Approach (ICD-10-PCS; 2024-02-09)
PROC: 0UT94ZL Resection of Uterus, Supracervical, Percutaneous Endoscopic Approach (ICD-10-PCS; 2024-02-09)
PROC: 0TJB8ZZ Inspection of Bladder, Via Natural or Artificial Opening Endoscopic (ICD-10-PCS; 2024-02-09)
PROC: 0JUC3JZ Supplement of Pelvic Region Subcutaneous Tissue and Fascia with Synthetic Substitute, Percutaneous Approach (ICD-10-PCS; 2024-02-09)
PROC: 0UT74ZZ Resection of Bilateral Fallopian Tubes, Percutaneous Endoscopic Approach (ICD-10-PCS; 2024-02-09)
PROC: 8E0W4CZ Robotic Assisted Procedure of Trunk Region, Percutaneous Endoscopic Approach (ICD-10-PCS; 2024-02-09)
PROC: 0TSD4ZZ Reposition Urethra, Percutaneous Endoscopic Approach (ICD-10-PCS; principal; 2024-02-09 07:53)
DX: N81.4 Uterovaginal prolapse, unspecified (principal); E11.9 Type 2 diabetes mellitus without complications; M10.9 Gout, unspecified; E78.5 Hyperlipidemia, unspecified
CPT/HCPCS: 36415; 80053; 81001; 82962; 83036; 85025; 85610; 85730; 86850; 86900; 86901; 97110; 97116; 97163; 97530; G0378; J0330; J1815; J2250; J2405; J2704; J3490

== ENCOUNTER → 2024-06-01 | Outpatient (CLI) | payer OTHER ==
[~2024-06-01] MED LIST changes: +DOCU-94 PO; +ESTR0.1C5 VA; -METF-371 PO; +METF-929 PO; +PROG200C21 PO
[2024-06-01 10:55] LABS: Urine Bacteria None Seen /hpf (None Seen)
[2024-06-01 11:01] LABS: Basophils # (auto) 0 10 ^3/uL (0-0.2); Basophils % (auto) 0.5 % (0.0-2.0); Eosinophils # (auto) 0.2 10 ^3/uL (0-0.8); Hematocrit 35.9 % (36.0-46.0); Hemoglobin 12.2 g/dL (12.2-16.2); Lymphocytes # (auto) 2.8 10 ^3/uL (0.4-5.4); Lymphocytes % (auto) 48.5 % (10.0-50.0); Mean Corpuscular Hemoglobin 31.1 pg (28.0-32.0); Mean Corpuscular Volume 91.5 fL (80.0-100.0); Monocytes # (auto) 0.4 10 ^3/uL (0-1.3); Monocytes % (auto) 7.7 % (0.0-12.0); Neutrophils # (auto) 2.3 10 ^3/uL (1.6-8.6); Neutrophils % (auto) 40.3 % (37.0-80.0); Platelet Count (auto) 264 10^3/uL (140-450); Red Blood Cells 3.92 10^6/uL (4.0-5.20); Red Cell Distribution Width 14.6 % (11.8-14.3); White Blood Cell 5.7 10^3/uL (4.4-10.8)
[2024-06-01 11:36] LABS: Alanine Aminotransferase 27 U/L (7-40); Albumin 4.2 g/dL (3.2-4.8); Alkaline Phosphatase 69 U/L (46-116); Anion Gap 5 (5-15); Aspartate Aminotransferase 20 U/L (13-40); BUN/Creatinine Ratio 14.5 (10.0-20.0); Blood Urea Nitrogen 9 mg/dL (9-23); Calcium 9.9 mg/dL (8.7-10.4); Carbon Dioxide 27 mmol/L (20-31); Chloride 110 mmol/L (98-107); Cholesterol 164 mg/dL (< 200); Glucose 75 mg/dL (74-106); HDL Cholesterol 52 mg/dL (40-59); LDL Cholesterol 102 mg/dL (< 100); Sodium 142 mmol/L (136-145); Triglycerides 101 mg/dL (< 150)
[2024-06-01 11:37] LABS: Bilirubin, Total 0.6 mg/dL (0.2-1.0); Total Protein 7.1 g/dL (5.7-8.2)
[2024-06-01 11:38] LABS: Creatinine, Urine 54.59 mg/dL (30.0-125.0)
[2024-06-01 11:41] LABS: Micro Albumin < 3.0 mg/L (<30.0)
[2024-06-01 11:44] LABS: Urine Blood Negative /uL (Negative); Urine Clarity Clear (Clear); Urine Color Light-Yellow (Yellow); Urine Protein, UAD Negative (Negative); Urine Specific Gravity 1.009 (1.001-1.035); Urine Urobilinogen Normal (Negative); Urine WBC 1 /hpf (0 - 5)
== END | disposition home or self-care (01) ==
LOC: LAB 10:43
PROVIDERS: ATTEND Student in an Organized Health Care Education/Training Program
DX: I10 Essential (primary) hypertension (principal); E11.9 Type 2 diabetes mellitus without complications
CPT/HCPCS: 36415; 80053; 80061; 81001; 82043; 82570; 83036; 85025

== ENCOUNTER → 2024-06-09 | Outpatient (CLI) | payer OTHER | END | disposition home or self-care (01) | LOC: LAB 12:41 | PROVIDERS: ATTEND Student in an Organized Health Care Education/Training Program | DX: Z12.11 Encounter for screening for malignant neoplasm of colon (principal); I10 Essential (primary) hypertension; E11.9 Type 2 diabetes mellitus without complications | CPT/HCPCS: 82274 ==

== ENCOUNTER → 2024-10-29 | Outpatient (CLI) | payer OTHER ==
[2024-10-29 12:17] LABS: Basophils # (auto) 0 10 ^3/uL (0-0.2); Basophils % (auto) 0.4 % (0.0-2.0); Eosinophils # (auto) 0.1 10 ^3/uL (0-0.8); Eosinophils % (auto) 1.2 % (0.0-7.0); Hematocrit 36.4 % (36.0-46.0); Hemoglobin 12.3 g/dL (12.2-16.2); Lymphocytes # (auto) 2.7 10 ^3/uL (0.4-5.4); Lymphocytes % (auto) 41.3 % (10.0-50.0); Mean Corpuscular Hemoglobin 30.3 pg (28.0-32.0); Mean Corpuscular Hgb Conc. 33.9 g/dL (32.0-36.0); Mean Corpuscular Volume 89.5 fL (80.0-100.0); Monocytes # (auto) 0.5 10 ^3/uL (0-1.3); Monocytes % (auto) 7.9 % (0.0-12.0); Neutrophils # (auto) 3.2 10 ^3/uL (1.6-8.6); Neutrophils % (auto) 49.2 % (37.0-80.0); Nucleated Red Blood Cells % 0.1 %; Platelet Count (auto) 295 10^3/uL (140-450); Red Blood Cells 4.06 10^6/uL (4.0-5.20); Red Cell Distribution Width 14.1 % (11.8-14.3); White Blood Cell 6.4 10^3/uL (4.4-10.8)
[2024-10-29 12:58] LABS: Alanine Aminotransferase 28 U/L (7-40); Albumin 4.5 g/dL (3.2-4.8); Alkaline Phosphatase 91 U/L (46-116); Anion Gap 7 (5-15); Aspartate Aminotransferase 19 U/L (13-40); BUN/Creatinine Ratio 14.1 (10.0-20.0); Bilirubin, Total 0.7 mg/dL (0.2-1.0); Blood Urea Nitrogen 10 mg/dL (9-23); Calcium 10.1 mg/dL (8.7-10.4); Carbon Dioxide 27 mmol/L (20-31); Chloride 104 mmol/L (98-107); Cholesterol 155 mg/dL (< 200); HDL Cholesterol 50 mg/dL (40-59); LDL Cholesterol 95 mg/dL (< 100); Potassium 4.2 mmol/L (3.5-5.1); Sodium 138 mmol/L (136-145); Total Protein 7.3 g/dL (5.7-8.2); Triglycerides 94 mg/dL (< 150)
[2024-10-29 13:06] LABS: Glucose 174 mg/dL (74-106)
[2024-10-29 13:12] LABS: Creatinine, Urine 27.54 mg/dL (30.0-125.0)
[2024-10-29 13:17] LABS: Micro Albumin < 3.0 mg/L (<30.0)
== END | disposition home or self-care (01) ==
LOC: LAB 11:42
PROVIDERS: ATTEND Student in an Organized Health Care Education/Training Program
DX: I10 Essential (primary) hypertension (principal); E11.9 Type 2 diabetes mellitus without complications; D50.9 Iron deficiency anemia, unspecified
CPT/HCPCS: 36415; 80053; 80061; 82043; 82306; 82570; 82607; 83036; 84443; 85025

== ENCOUNTER 2025-02-04 10:25 | Outpatient (CLI) | payer OTHER ==
[2025-02-04 10:48] LABS: Basophils # (auto) 0 10 ^3/uL (0-0.2); Basophils % (auto) 0.5 % (0.0-2.0); Eosinophils # (auto) 0.2 10 ^3/uL (0-0.8); Eosinophils % (auto) 2.6 % (0.0-7.0); Hematocrit 36.4 % (36.0-46.0); Hemoglobin 12.4 g/dL (12.2-16.2); Lymphocytes # (auto) 2.9 10 ^3/uL (0.4-5.4); Lymphocytes % (auto) 47.1 % (10.0-50.0); Mean Corpuscular Hemoglobin 30.7 pg (28.0-32.0); Mean Corpuscular Volume 90.3 fL (80.0-100.0); Monocytes # (auto) 0.5 10 ^3/uL (0-1.3); Monocytes % (auto) 7.7 % (0.0-12.0); Neutrophils # (auto) 2.6 10 ^3/uL (1.6-8.6); Neutrophils % (auto) 42.1 % (37.0-80.0); Platelet Count (auto) 281 10^3/uL (140-450); Red Blood Cells 4.03 10^6/uL (4.0-5.20); Red Cell Distribution Width 14.3 % (11.8-14.3); White Blood Cell 6.2 10^3/uL (4.4-10.8)
[2025-02-04 11:19] LABS: Alanine Aminotransferase 18 U/L (7-40); Albumin 4.2 g/dL (3.2-4.8); Alkaline Phosphatase 61 U/L (46-116); Anion Gap 9 (5-15); Aspartate Aminotransferase 20 U/L (<34); BUN/Creatinine Ratio 18.3 (10.0-20.0); Bilirubin, Total 0.5 mg/dL (0.2-1.0); Blood Urea Nitrogen 11 mg/dL (9-23); Calcium 9.9 mg/dL (8.7-10.4); Carbon Dioxide 24 mmol/L (20-31); Cholesterol 142 mg/dL (< 200); HDL Cholesterol 46 mg/dL (40-59); LDL Cholesterol 87 mg/dL (< 100); Potassium 3.9 mmol/L (3.5-5.1); Sodium 142 mmol/L (136-145); Triglycerides 84 mg/dL (< 150)
[2025-02-04 11:23] LABS: Chloride 109 mmol/L (98-107); Follicle Stimulating Hormone 7.68 IU/L (SEE BELOW); Free T3 2.73 pg/mL (2.3-4.2); Glucose 73 mg/dL (74-106)
[2025-02-05 08:07] LABS: Thyroxine (T4) 7.1 ug/dL (4.5-12.0)
[2025-02-05 11:07] LABS: Testosterone 331 ng/dL (3-67); Thyroid Peroxidase (TPO) Ab <9 IU/mL (0-34)
[2025-02-08 08:06] LABS: Free Testosterone(Direct) 0.8 pg/mL (0.0-4.2)
== END 2025-02-04 17:00 | disposition home or self-care (01) ==
LOC: LAB 10:25
PROVIDERS: ATTEND Obstetrics & Gynecology
DX: N95.1 Menopausal and female climacteric states (principal); E53.9 Vitamin B deficiency, unspecified; E07.89 Other specified disorders of thyroid; E34.9 Endocrine disorder, unspecified; E55.9 Vitamin D deficiency, unspecified; Z13.220 Encounter for screening for lipoid disorders
CPT/HCPCS: 36415; 80053; 80061; 82306; 82607; 82670; 83001; 84144; 84402; 84403; 84436; 84443; 84481; 85025; 86376

== ENCOUNTER 2025-04-06 09:39 | Outpatient (CLI) | payer OTHER ==
[2025-04-06 10:42] LABS: Hematocrit 37.6 % (36.0-46.0); Hemoglobin 12.5 g/dL (12.2-16.2); Mean Corpuscular Hemoglobin 30.5 pg (28.0-32.0); Mean Corpuscular Volume 91.9 fL (80.0-100.0); Nucleated Red Blood Cells % 0.0 %
[2025-04-06 10:53] LABS: Urine Protein, UAD Negative (Negative)
[2025-04-06 11:03] LABS: Alanine Aminotransferase 18 U/L (7-40); Alkaline Phosphatase 70 U/L (46-116); Anion Gap 8 (5-15); BUN/Creatinine Ratio 14.5 (10.0-20.0); Blood Urea Nitrogen 9 mg/dL (9-23); Calcium 9.3 mg/dL (8.7-10.4); Carbon Dioxide 28 mmol/L (20-31); Chloride 105 mmol/L (98-107); Glucose 93 mg/dL (74-106); Potassium 4.0 mmol/L (3.5-5.1); Sodium 141 mmol/L (136-145); Total Protein 6.7 g/dL (5.7-8.2); Triglycerides 74 mg/dL (< 150)
[2025-04-06 11:04] LABS: Albumin 4.2 g/dL (3.2-4.8); Cholesterol 130 mg/dL (< 200)
[2025-04-06 11:05] LABS: Bilirubin, Total 0.6 mg/dL (0.2-1.0); HDL Cholesterol 53 mg/dL (40-59)
== END 2025-04-06 17:00 | disposition home or self-care (01) ==
LOC: LAB 09:39
PROVIDERS: ATTEND Student in an Organized Health Care Education/Training Program
DX: I10 Essential (primary) hypertension (principal); E11.9 Type 2 diabetes mellitus without complications; E55.9 Vitamin D deficiency, unspecified; Z12.11 Encounter for screening for malignant neoplasm of colon
CPT/HCPCS: 36415; 80053; 80061; 81001; 82306; 83036; 84443; 85025

== ENCOUNTER 2025-04-15 11:36 | Emergency (ER) | payer MEDICARE, OTHER ==
[~2025-04-15] VITALS: Ht 152.4 cm; Wt 58.2 kg
--- NOTE | 2025-04-15 13:13 | ED.PDOC ---
Musculoskeletal HPI Comments A 69 YEAR OLD FEMALE PRESENTS TO THE ED WITH COMPLAINT OF RIGHT ANKLE AND FOOT PAIN S/P FALL. PATIENT STATES SHE ACCIDENTALLY TRIPPED AND FELL 5 DAYS AGO AND INJURED HER RIGHT ANKLE AND RIGHT FOOT. PATIENT REPORTS SHE HAD AN X-RAY DONE TODAY WHICH REVEALED A DISTAL FIBULA AND TIBIA FRACTURE, BUT WAS NOT TREATED AND WAS SENT TO THE ED FOR FURTHER TREATMENT. PATIENT DENIES FEVER, CHILLS, SHORTNESS OF BREATH, CHEST PAIN, ABDOMINAL PAIN, NAUSEA, VOMITING, HEADACHE, OR OTHER COMPLAINTS. NO OTHER SYMPTOMS OR MODIFYING FACTORS AT THIS TIME. PATIENT IS ALERT, ORIENTED X 4, AND HAS STEADY GAIT. Chief Complaint: Lower Extremity Time Seen by MD: 11:55 Primary Care Provider: BETTIE Reviewed Notes: Nurses Notes, Medications, Allergies Allergies: Coded Allergies: NO KNOWN ALLERGIES (Unverified , 09/02/22) Home Meds Active Scripts Acetaminophen (Tylenol 8 Hour Arthritis) 650 Mg Tab, 650 MG PO TID, #30 TAB Prov:ЮЛИЯ DAMON 04/15/25 Reported Medications Ciprofloxacin Hcl (Ciprofloxacin Hcl) 500 Mg Tab, 1 TAB PO Q12HR for 10 Days, #20 02/10/24 Progesterone Micronized (PROGESTERONE) 200 Mg Cap, 1 CAP PO DAILY 02/10/24 Estradiol Vaginal (Estradiol) 0.1 Mg/Gm Cre, 1 GM VA QWEEKLY Insert 1 gram by vaginal route every week for atrophic vaginitis. 02/10/24 Hydrocodone-Acetaminophen (Hydrocodone Bitartrate/AC 5-325 mg) 1 Tab Tab, 1 TAB PO Q6HR for 7 Days 02/10/24 Docusate Sodium (Colace) 100 Mg Cap, 1 CAP PO DAILY 02/10/24 Metformin HCl (Metformin Hydrochloride) 1,000 Mg Tab, 1 TAB PO BID, TAB 02/10/24 Tramadol Hcl (Tramadol Hcl) 50 Mg Tab, 1 TAB PO Q12HR 02/06/24 Allopurinol (Allopurinol) 300 Mg Tab, 300 MG PO HS, TAB 01/30/22 Atorvastatin Calcium (ATORVASTATIN CALCIUM) 20 Mg Tab, 1 TAB PO HS, #30 TAB 5 Refills 01/30/22 Insulin Glargine (Lantus) 100 Unit/Ml Inj, 30 UNIT SC QPM, INJ 01/30/22 Gabapentin (Gabapentin) 300 Mg Cap, 2 CAP PO DAILY 01/29/22 Aspirin (Aspir-Low) 81 Mg Tab, 81 MG PO DAILY for 30 Days, MG 01/29/22 Information Source: Patient Mode of Arrival: Ambulatory Location: Right Extremity Location: Ankle, Foot Timing: Days Prehospital treatment: None Severity: Moderate Able to Move Extremity: Yes Bear Weight: Limited Pain: Moderate Mechanism: Twisting Circumstances: Fall Onset of Symptoms: After Trauma Symptoms: Pain DVT Risk Factors: NONE Last Tetanus: Unknown Associated signs and symptoms: Ankle pain, Foot pain Past Medical History PAST MEDICAL HISTORY: DM, Gout Surgical History: Denies all surgeries PATIENT OMBUDSPERSON History: No Pertinent PATIENT OMBUDSPERSON History Family History Family History: Reviewed,noncontributory to illness, Family hx of DM Social History Smoker: Non-Smoker Alcohol: Denies ETOH Use Drugs: Denies Drug Use Lives In: Home Constitutional: denies: chills, diaphoresis, fatigue, fever, malaise, sweats, weakness, others EENTM: denies: blurred vision, double vision, ear bleeding, ear discharge, ear drainage, ear pain, ear ringing, eye pain, eye redness, hearing loss, mouth pain, mouth swelling, nasal discharge, nose bleeding, nose congestion, nose pain, photophobia, tearing, throat pain, throat swelling, voice changes, others Respiratory: denies: cough, hemoptysis, orthopnea, SOB at rest, shortness of breath, SOB with excertion, stridor, wheezing, others Cardiovascular: denies: chest pain, dizzy spells, diaphoresis, Dyspnea on exertion, edema, irregular heart beat, left arm pain, lightheadedness, palpitations, PND, syncope, others Gastrointestinal: denies: abdomen distended, abdominal pain, blood streaked bowels, constipated, diarrhea, dysphagia, difficulty swallowing, hematemesis, melena, nausea, poor appetite, poor fluid intake, rectal bleeding, rectal pain, vomiting, others Genitourinary: denies: abnormal vagina bleeding, burning, dyspareunia, dysuria, flank pain, frequency, hematuria, incontinence, pain, , vagina discharge, urgency, others Neurological: denies: dizziness, fainting, headache, left sided numbness, left sided weakness, numbness, paresthesia, pre-existing deficit, right sided numbness, right sided weakness, seizure, speech problems, tingling, tremors, weakness, others Musculoskeletal: reports: joint pain, joint swelling, others (RIGHT ANKLE PAIN, RIGHT FOOT PAIN WITH SWELLING); denies: back pain, gout, muscle pain, muscle stiffness, neck pain Integumetry: denies: bruises, change in color, change in hair/nails, dryness, laceration, lesions, lumps, rash, wounds, others Allergic/Immunocompromised: denies: Difficulty Healing, Frequent Infections, Hives, Itching, others Hematologic/Lymphatic: denies: anemia, blood clots, easy bleeding, easy bruising, swollen glands, others Endocrine: denies: excessive hunger, excessive sweating, excessive thirst, excessive urination, flushing, intolerance to cold, intolerance to heat, unexplained weight gain, unexplained weight loss, others Psychiatric: denies: anxiety, bipolar disorder, depression, hopeless, panic disorder, schizophrenia, sleepless, suicidal, others All Other Systems: Reviewed and Negative Physical Exam General Appearance: No Apparent Distress, Normal HEENT: Normal ENT Inspection, PERRL/EOMI, Pharynx Normal, TMs Normal Neck: Full Range of Motion, Non-Tender, Normal, Normal Inspection Respiratory: Chest Non-Tender, Lungs Clear, No Accessory Muscle Use, No Respiratory Distress, Normal Breath Sounds Cardiovascular: No Edema, No JVD, No Murmur, No Gallop, Normal Peripheral Pulses, Regular Rate/Rhythm Breast Exam: Deferred Gastrointestinal: No Organomegaly, Non Tender, No Pulsatile Mass, Normal Bowel Sounds, Soft Genitalia: Deferred Pelvic: Deferred Rectal: Deferred Extremities: Decreased range of motion, No calf tenderness, Normal capillary refill, No pedal edema, Swelling (BONY TENDERNESS AND SWELLING ON RIGHT ANKLE, NO DEFORMITY. ), Tender (TENDERNESS AND MILD SWELLING ON RIGHT DORSAL FOOT, NO DEFORMITY. ) Musculoskeletal : Apperance: Normal Neurologic: Alert, hereditary cancer program coordinator II-XII nml as Tested, No Motor Deficits, Normal Affect, Normal Mood, No Sensory Deficits Cerebellar Function: Normal Reflexes: Normal Skin: Dry, Normal Color, Warm Peripheral Pulses: 2+ carotid (R), 2+ carotid (L), 2+ dorsalis pedis (R), 2+ dorsalis pedis (L) Lymphatic: No Adenopathy Was a procedure done? Was a procedure done?: No Differential Diagnosis EXT Differential Diagnosis: Fracture, Sprain, Dislocation, Contusion, Strain, Bursitis X-Ray, Labs, Meds, VS Vital Signs Date Time Temp Pulse Resp B/P (MAP) Pulse Ox O2 Delivery O2 Flow Rate FiO2 04/15/25 11:38 98.5 78 18 137/69 97 98.5 Current Medications Medications (Trade) Dose Ordered Sig/Yudelka Route Start Time Stop Time Status Last Admin Acetaminophen (Tylenol Tablet Or Capsule) 1,000 mg ONCE ONCE PO 04/15/25 13:15 04/15/25 13:16 DC 04/15/25 13:30 CLINICAL INDICATION: pain TECHNIQUE: 3 radiographic views of the right foot were obtained. Comparison: None FINDINGS/IMPRESSION: Comminuted mildly displaced fracture of the distal tibia and fibula better visualized on ankle radiographs. Small plantar and posterior calcaneal enthesophyte. ATED BY: KERRIE PRITCHARD MD DICTATED DATE/TIME: 04/15/25 1350 SIGNED BY: KERRIE PRITCHARD MD SIGNED DATE/TIME: 04/15/25 1350 CC: EXAM: XY R ANKLE 3 VIEW CLINICAL INDICATION: PAIN TECHNIQUE: XY R ANKLE 3 VIEW Comparison: None FINDINGS/IMPRESSION: Comminuted minimally displaced distal fibula and tibia ATED BY: CRISELDA LOZANO MD DICTATED DATE/TIME: 04/15/25 1147 SIGNED BY: CRISELDA LOZANO MD SIGNED DATE/TIME: 04/15/25 1147 CC: X-Ray, Labs, Meds, VS Comment EXTERNAL MEDICAL RECORDS REVIEWED: [NONE] INDEPENDENT HISTORIANS: [NONE] SOCIAL DETERMINANTS OF HEALTH: [NONE] LABS ORDERED: NONE REVIEWED AND INTERPRETED RESULTS: NONE IMAGING ORDERED: XR FOOT RT TREATMENTS ORDERED: TYLENOL 1 G P.O., ANKLE STIRRUP SPLINT APPLIED TO PATIENT'S RIGHT ANKLE. PROCEDURES PERFORMED: NONE CRITICAL CARE TIME: NONE I HAVE DISCUSSED THE PATIENT WITH THE ATTENDING PHYSICIAN DR. PEREZ AND HE AGREES WITH THE PATIENT'S PLAN OF CARE AND DISPOSITION. BASED ON HISTORY OF PRESENT ILLNESS, AND PHYSICAL EXAM, PATIENT WILL BE DISCHARGED HOME. DISCUSSED PLAN FOR DISCHARGE HOME WITH RX [TYLENOL]. MEDICATION WARNINGS GIVEN. SHARED DECISION MAKING: PATIENT INSTRUCTED TO FOLLOW UP WITH PRIMARY CARE PROVIDER IN 1-2 DAYS FOR RE-EVALUATION OF SYMPTOMS. PATIENT VERBALIZES UNDERSTANDING TO RETURN TO ED FOR NEW OR WORSENING SYMPTOMS OR IF FOLLOW UP WITH PCP CANNOT BE OBTAINED. PATIENT FEELS COMFORTABLE GOING HOME AT THIS TIME. ALL QUESTIONS ADDRESSED AT TIME OF DISCHARGE. Images Reviewed?: Images reviewed and evaluated by me Time of 1ST Reevaluation: 14:20 Reevaluation 1ST: Improved Patient Education/Counseling: Diagnosis, Treatment, Need For Follow Up Family Education/Counseling: Diagnosis, Treatment, Need For Follow Up Medical Screening: No EMC Exist At This Time Departure 1 Departure Time of Disposition: 14:20 Impression: Primary Impression: Fracture of distal end of right tibia Qualified Codes: S82.391A - Other fracture of lower end of right tibia, initial encounter for closed fracture Additional Impressions: Fracture of distal end of right fibula Qualified Codes: S82.831A - Other fracture of upper and lower end of right fibula, initial encounter for closed fracture Status post fall Disposition: 01 HOME / SELF CARE / HOMELESS Condition: Stable Additional Instructions: FOLLOW-UP WITH PCP IN 1 TO 2 DAYS FOR REFERRAL TO SINGLE END SEWER. TAKE MEDICATIONS PRESCRIBED. RETURN TO ED FOR ANY NEW OR WORSENING SYMPTOMS. e-Prescriptions Acetaminophen (Tylenol 8 Hour Arthritis) 650 Mg Tab 650 MG PO TID, #30 TAB Prov: ЮЛИЯ DAMON 04/15/25 Discharged With: Self, Spouse Critical Care Note Critical Care Time?: No Stability Stability form required: No I personally scribed for ЮЛИЯ DAMON ([email or web address]) on 04/15/25 at 13:13. Electronically submitted by Lencho Gottlieb ([email or web address]). I personally scribed for ЮЛИЯ DAMON ([email or web address]) on 04/15/25 at 13:22. Electronically submitted by Lencho Gottlieb ([email or web address]). I personally scribed for ЮЛИЯ DAMON ([email or web address]) on 04/15/25 at 14:03. Electronically submitted by Lencho Gottlieb ([email or web address]). ЮЛИЯ DAMON Apr 15, 2025 13:13
[2025-04-15] MEDS: ACETAMINOPHEN 500 MG TAB or CAP PO ONE (13:30)
--- NOTE | 2025-04-15 13:52 | DVH ---
CLINICAL INDICATION: pain TECHNIQUE: 3 radiographic views of the right foot were obtained. Comparison: None FINDINGS/IMPRESSION: Comminuted mildly displaced fracture of the distal tibia and fibula better visualized on ankle radiog raphs. Small plantar and posterior calcaneal enthesophyte.
[2025-04-15 14:09] VITALS: BP 137/69; PULSE 78; RESP 18; TEMP 98.5; O2SAT 97
[2025-04-15] MEDS ORDERED: ACET-1080 PO (14:18)
== END 2025-04-15 14:46 | disposition home or self-care (01) ==
LOC: ER 11:36
DX: S82.391A Other fracture of lower end of right tibia, initial encounter for closed fracture (principal); S82.831A Other fracture of upper and lower end of right fibula, initial encounter for closed fracture; E11.9 Type 2 diabetes mellitus without complications; M10.9 Gout, unspecified; Z79.82 Long term (current) use of aspirin; Z79.84 Long term (current) use of oral hypoglycemic drugs; Z79.899 Other long term (current) drug therapy; W01.0XXA Fall on same level from slipping, tripping and stumbling without subsequent striking against object, initial encounter; Y93.89 Activity, other specified; Y92.89 Other specified places as the place of occurrence of the external cause; Y99.8 Other external cause status
CPT/HCPCS: 29515; 73630

== ENCOUNTER 2025-05-01 09:38 | Inpatient (IN) | payer OTHER ==
[~2025-05-01] VITALS: Ht 152.4 cm; Wt 58.0 kg
[~2025-05-01 09:38] MED LIST changes: +ACET-1080 PO
--- NOTE | 2025-05-01 10:39 | ED.PDOC ---
History of Present Illness HPI Comments 69 y/o F, with PMHx of DM and Gout presents to the ED for CC of preoperative clearance. Patient reports, she suffered a tibia Fx on 04/12/25 and will be undergoing surgery tomorrow (04/22/25), for a internal reduction and fixation. Patient relays, she was instructed by orthopedic surgeon () to report to the ED for preoperative clearance. No other symptoms or modifying factors are present at this time. Chief Complaint: Lower Extremity Time Seen by MD: 10:30 Primary Care Provider: BETTIE Reviewed Notes: Nurses Notes, Medications, Allergies Allergies: Coded Allergies: NO KNOWN ALLERGIES (Unverified , 09/02/22) Home Meds Active Scripts Acetaminophen (Tylenol 8 Hour Arthritis) 650 Mg Tab, 650 MG PO TID, #30 TAB Prov:ЮЛИЯ DAMON 04/15/25 Reported Medications Ciprofloxacin Hcl (Ciprofloxacin Hcl) 500 Mg Tab, 1 TAB PO Q12HR for 10 Days, #20 02/10/24 Progesterone Micronized (PROGESTERONE) 200 Mg Cap, 1 CAP PO DAILY 02/10/24 Estradiol Vaginal (Estradiol) 0.1 Mg/Gm Cre, 1 GM VA QWEEKLY Insert 1 gram by vaginal route every week for atrophic vaginitis. 02/10/24 Hydrocodone-Acetaminophen (Hydrocodone Bitartrate/AC 5-325 mg) 1 Tab Tab, 1 TAB PO Q6HR for 7 Days 02/10/24 Docusate Sodium (Colace) 100 Mg Cap, 1 CAP PO DAILY 02/10/24 Metformin HCl (Metformin Hydrochloride) 1,000 Mg Tab, 1 TAB PO BID, TAB 02/10/24 Tramadol Hcl (Tramadol Hcl) 50 Mg Tab, 1 TAB PO Q12HR 02/06/24 Allopurinol (Allopurinol) 300 Mg Tab, 300 MG PO HS, TAB 01/30/22 Atorvastatin Calcium (ATORVASTATIN CALCIUM) 20 Mg Tab, 1 TAB PO HS, #30 TAB 5 Refills 01/30/22 Insulin Glargine (Lantus) 100 Unit/Ml Inj, 30 UNIT SC QPM, INJ 01/30/22 Gabapentin (Gabapentin) 300 Mg Cap, 2 CAP PO DAILY 01/29/22 Aspirin (Aspir-Low) 81 Mg Tab, 81 MG PO DAILY for 30 Days, MG 01/29/22 Information Source: Patient Mode of Arrival: Wheelchair Severity: Moderate Timing: Days Duration: Since onset Prehospital treatment: None Past Medical History PAST MEDICAL HISTORY: DM, Gout Surgical History: Denies all surgeries BOND BROKER History: No Pertinent BOND BROKER History Family History Family History: Reviewed,noncontributory to illness, Family hx of DM Social History Smoker: Non-Smoker Alcohol: Denies ETOH Use Drugs: Denies Drug Use Lives In: Home Constitutional: denies: chills, diaphoresis, fatigue, fever, malaise, sweats, weakness, others EENTM: denies: blurred vision, double vision, ear bleeding, ear discharge, ear drainage, ear pain, ear ringing, eye pain, eye redness, hearing loss, mouth pain, mouth swelling, nasal discharge, nose bleeding, nose congestion, nose pain, photophobia, tearing, throat pain, throat swelling, voice changes, others Respiratory: denies: cough, hemoptysis, orthopnea, SOB at rest, shortness of breath, SOB with excertion, stridor, wheezing, others Cardiovascular: denies: chest pain, dizzy spells, diaphoresis, Dyspnea on exertion, edema, irregular heart beat, left arm pain, lightheadedness, palpitations, PND, syncope, others Gastrointestinal: denies: abdomen distended, abdominal pain, blood streaked bowels, constipated, diarrhea, dysphagia, difficulty swallowing, hematemesis, melena, nausea, poor appetite, poor fluid intake, rectal bleeding, rectal pain, vomiting, others Genitourinary: denies: abnormal vagina bleeding, burning, dyspareunia, dysuria, flank pain, frequency, hematuria, incontinence, pain, , vagina discharge, urgency, others Neurological: denies: dizziness, fainting, headache, left sided numbness, left sided weakness, numbness, paresthesia, pre-existing deficit, right sided numbness, right sided weakness, seizure, speech problems, tingling, tremors, weakness, others Musculoskeletal: denies: back pain, gout, joint pain, joint swelling, muscle pain, muscle stiffness, neck pain, others Integumetry: denies: bruises, change in color, change in hair/nails, dryness, laceration, lesions, lumps, rash, wounds, others Allergic/Immunocompromised: denies: Difficulty Healing, Frequent Infections, Hives, Itching, others Hematologic/Lymphatic: denies: anemia, blood clots, easy bleeding, easy bruising, swollen glands, others Endocrine: denies: excessive hunger, excessive sweating, excessive thirst, excessive urination, flushing, intolerance to cold, intolerance to heat, unexplained weight gain, unexplained weight loss, others Psychiatric: denies: anxiety, bipolar disorder, depression, hopeless, panic disorder, schizophrenia, sleepless, suicidal, others All Other Systems: Reviewed and Negative Physical Exam General Appearance: Moderate Distress HEENT: Normal ENT Inspection, Pharynx Normal, TMs Normal Neck: Full Range of Motion, Non-Tender, Normal, Normal Inspection Respiratory: Chest Non-Tender, Lungs Clear, No Accessory Muscle Use, No Respiratory Distress, Normal Breath Sounds Cardiovascular: No Edema, No JVD, No Murmur, No Gallop, Normal Peripheral Pulses, Regular Rate/Rhythm Breast Exam: Deferred Gastrointestinal: No Organomegaly, Non Tender, No Pulsatile Mass, Normal Bowel Sounds, Soft Genitalia: Deferred Pelvic: Deferred Rectal: Deferred Extremities: No calf tenderness, No pedal edema, Other (Left lower extremity boot from fracture) Musculoskeletal : Apperance: Normal Neurologic: Alert, No Motor Deficits, No Sensory Deficits Cerebellar Function: NOT DONE Reflexes: Normal Skin: Normal Color Lymphatic: No Adenopathy Was a procedure done? Was a procedure done?: No Differential Dx Considerations may include: PREOPERATIVE CLEARANCE X-Ray, Labs, Meds, VS Vital Signs Date Time Temp Pulse Resp B/P (MAP) Pulse Ox O2 Delivery O2 Flow Rate FiO2 05/01/25 09:42 97.8 85 16 118/53 96 97.8 Lab Test 05/01/25 10:52 Range/Units White Blood Count 5.9 4.4-10.8 10^3/uL Red Blood Count 4.07 4.0-5.20 10^6/uL Hemoglobin 12.8 12.2-16.2 g/dL Hematocrit 37.9 36.0-46.0 % Mean Corpuscular Volume 93.1 80.0-100.0 fL Mean Corpuscular Hemoglobin 31.5 28.0-32.0 pg Mean Corpuscular Hemoglobin Concent 33.9 32.0-36.0 g/dL Red Cell Distribution Width 14.7 H 11.8-14.3 % Platelet Count 440 140-450 10^3/uL Mean Platelet Volume 6.9 6.9-10.8 fL Neutrophils (%) (Auto) 50.3 37.0-80.0 % Lymphocytes (%) (Auto) 40.5 10.0-50.0 % Monocytes (%) (Auto) 7.8 0.0-12.0 % Eosinophils (%) (Auto) 0.8 0.0-7.0 % Basophils (%) (Auto) 0.6 0.0-2.0 % Neutrophils # (Auto) 3.0 1.6-8.6 10 ^3/uL Lymphocytes # (Auto) 2.4 0.4-5.4 10 ^3/uL Monocytes # (Auto) 0.5 0-1.3 10 ^3/uL Eosinophils # (Auto) 0 0-0.8 10 ^3/uL Basophils # (Auto) 0 0-0.2 10 ^3/uL Nucleated Red Blood Cells 0.1 % Prothrombin Time 11.0 9.3-11.8 sec Prothrombin Time INR 1.04 0.9-1.15 Activated Partial Thromboplast Time 25.2 24.5-34.5 SEC Sodium Level 138 136-145 mmol/L Potassium Level 3.9 3.5-5.1 mmol/L Chloride Level 103 98-107 mmol/L Carbon Dioxide Level 26 20-31 mmol/L Anion Gap 9 5-15 Blood Urea Nitrogen 9 9-23 mg/dL Creatinine 0.68 0.550-1.02 mg/dL Glomerular Filtration Rate Calc 93 >90 mL/min BUN/Creatinine Ratio 13.2 10.0-20.0 Serum Glucose 153 H 74-106 mg/dL Calcium Level 9.5 8.7-10.4 mg/dL [place] [id number] Ph: [phone] DIAGNOSTIC IMAGING Diagnostic Imaging Report : [id number] Signed PATIENT: MIKE COLINDRES LACCT: [id number] UNIT: [id number] : 1955 LOC: ER ROOM / BED: / AGE / SEX: 69 / F ADM STATUS: REG ER SERVICE 1032 ORDERING PHYSICIAN: BAIRON PEREZ MD PROCEDURE(s): CXRP - CHEST PORTABLE REASON: sob ORDER NUMBER(s): [id number], ACCESSION NUMBER(s): [id number] AP portable chest CLINICAL INDICATION: sob Comparison: 01/28/2022 FINDINGS: Left ventricular configuration to the heart. The aorta is tortuous. No infiltrates or effusions. Degenerative changes in the spine. There is some calcification in the right shoulder joint capsule. IMPRESSION: 1. No acute cardiopulmonary pathology ATED BY: KELLY SIMMONS MD DICTATED DATE/TIME: 05/01/251101 SIGNED BY: KELLY SIMMONS MD SIGNED DATE/TIME: 05/01/251101 CC: Patient alert. Vitals stable. Came in because of surgical procedure to be done tomorrow. Answering questions. She did have fracture of the left foot. She was sent bite orthopedic surgeon for surgical procedure. Denies any symptoms. Cardiology clearance. Explained to the patient. Continue monitoring. Time of 1ST Reevaluation: 11:00 Reevaluation 1ST: Unchanged Patient Education/Counseling: Diagnosis, Treatment Family Education/Counseling: Diagnosis, Treatment SEPSIS Sepsis Screen Date sepsis recognized/suspect: May 01, 2025 Time Sepsis recognized/suspect: 941 Recent Procedure: No On Antibiotic Therapy: No Respiratory Rate >20: No Heart Rate >90: No Temp<36 C (96.8 F) or >38.3 C: No SBP <90 or MAP <65 mmHG: No New Acute Mental Status Change: No Is the patient on CPAP, BIPAP,: No Physician Orders Chest Portable (05/01/25 10:32) Urinalysis (05/01/25 10:32) * Cardiology Consult (05/01/25 10:34) Vital Signs Date Time Temp Pulse Resp B/P (MAP) Pulse Ox O2 Delivery O2 Flow Rate FiO2 05/01/25 09:42 97.8 85 16 118/53 96 97.8 Laboratory Tests Test 05/01/25 10:52 White Blood Count 5.9 10^3/uL (4.4-10.8) Departure 1 Departure Time of Disposition: 12:20 Impression: Primary Impression: Fracture of distal end of right tibia Qualified Codes: S82.301A - Unspecified fracture of lower end of right tibia, initial encounter for closed fracture Disposition: ADMITTED INPATIENT Admit to: Med Surg Condition: Guarded Critical Care Note Critical Care Time?: No Stability Stability form required: No Heart Score Heart Score: Heart Score Response (Comments) Value History N/A 0 EKG N/A 0 Age N/A 0 Risk Factors N/A 0 Troponin N/A 0 Total 0 I personally scribed for ABIRON PEREZ MD ([email or web address]) on 05/01/25 at 10:39. Electronically submitted by Shantel Roth ([email or web address]). I personally scribed for BAIRON PEREZ MD ([email or web address]) on 05/01/25 at 11:44. Electronically submitted by Shantel Roth ([email or web address]). BAIRON PEREZ MD May 01, 2025 10:39
--- NOTE | 2025-05-01 11:04 | DVH ---
AP portable chest CLINICAL INDICATION: sob Comparison: 01/28/2022 FINDINGS: Left ventricular configuration to the heart. The aorta is tortuous. No infiltrates or effu sions. Degenerative changes in the spine. There is some calcification in the right shoulder joint cap speedy. IMPRESSION: 1. No acute cardiopulmonary pathology
[2025-05-01 11:20] LABS: Hematocrit 37.9 % (36.0-46.0); Hemoglobin 12.8 g/dL (12.2-16.2); Mean Corpuscular Hemoglobin 31.5 pg (28.0-32.0); Mean Corpuscular Volume 93.1 fL (80.0-100.0); Nucleated Red Blood Cells % 0.1 %
[2025-05-01 11:25] LABS: Chloride 103 mmol/L (98-107); Potassium 3.9 mmol/L (3.5-5.1); Sodium 138 mmol/L (136-145)
[2025-05-01 11:26] LABS: Anion Gap 9 (5-15); Calcium 9.5 mg/dL (8.7-10.4); Carbon Dioxide 26 mmol/L (20-31)
[2025-05-01 11:31] LABS: BUN/Creatinine Ratio 13.2 (10.0-20.0); Blood Urea Nitrogen 9 mg/dL (9-23)
[2025-05-01 11:34] LABS: INR 1.04 (0.9-1.15); Partial Thromboplastin Time 25.2 SEC (24.5-34.5); Prothrombin Time 11.0 sec (9.3-11.8)
[2025-05-01 11:38] LABS: Glucose 153 mg/dL (74-106)
[2025-05-01] MEDS ORDERED: NITROGLYCERIN 0.4 MG SL TAB SL PRN (15:45)
[2025-05-01] MEDS ORDERED: ONDANSETRON HCL 4 MG/2 ML VIAL IV PRN (15:45)
[2025-05-01] MEDS ORDERED: ACETAMINOPHEN 325 MG TAB PO PRN (15:45)
[2025-05-01] MEDS ORDERED: MORPHINE SULFATE INJ 2 MG/ml SYRG IV PRN (15:45)
--- NOTE | 2025-05-01 16:13 | DVHHPRES ---
History of Present Illness Resident Creating Document: JOSE CARLOS SEVERINO RESIDENT History of Present Illness Sofia Caicedo is a 69 years old female with a PMH of HTN and gout presented to the ED with the chief complaints of Rt leg pain. Patient reported he has been having a fall on April 11 for which [facility] delayed seeking medical attention, believing the injury was not serious however persistent pain prompting her to visit ED. patient reported she tripped and fell on the floor from which she has been having more difficulty with ambulating. She visited ortho clinic and they recommended surgery. On my assessment patient denies loss of consciousness, trauma, dizziness, fever, nausea, vomiting, chest pain, and other associated symptoms PMH: HTN and good PSH: Cholecystectomy Family history: Noncontributory Social history: Lives with family. Denies smoking, alcohol and other drug abuse Allergies: No known allergies Home medications: Unable to recall Patient seen and examined at the bedside in the ED. all events reviewed. Patient currently having pain in the right lower leg and has been difficulty with the ambulation. Rest of ROS is negative Review of Systems Allergies: Coded Allergies: NO KNOWN ALLERGIES (Unverified , 09/02/22) Medications Current Medications Medications Dose Ordered Sig/Yudelka Route Start Time Stop Time Status Last Admin Dose Admin Sodium Chloride 10 ml Q8HR IV 05/01/25 22:00 Sodium Chloride 1,000 ml @ 60 mls/hr [id number] IV 05/01/25 15:45 Acetaminophen/ Hydrocodone Bitart 1 tab Q4HP PRN PO 05/01/25 15:45 Ondansetron HCl 4 mg Q4HP PRN IV 05/01/25 15:45 Enoxaparin Sodium 40 mg DAILY SC 05/02/25 10:00 Acetaminophen 650 mg Q6HP PRN PO 05/01/25 15:45 Nitroglycerin 0.4 mg Q5MINP PRN SL 05/01/25 15:45 Morphine Sulfate 2 mg Q30M PRN IV 05/01/25 15:45 Exam Vital Signs Vital Signs Date Time Temp Pulse Resp B/P (MAP) Pulse Ox O2 Delivery O2 Flow Rate FiO2 05/01/25 15:45 98.4 70 16 125/60 (81) 99 98.4 Exam Pt is lying on bed General Appearance: Alert, Oriented X3, Cooperative, Not in acute distress HEENT: Atraumatic, Mucous membranes moist/pink Respiratory: Clear to auscultation, Normal air movement, No added sounds Cardiovascular: Regular rate, Normal S1, Normal S2, No murmurs Abdominal: Active bowel sounds, Soft, no distention, no tenderness Extremities: No edema, Normal pulses, Right lower extremity home orthotic boot, having tenderness Skin: No Significant rash, except past surgical scars Neuro: Normal speech, sensorimotor deficits none Psych/Mental Status: Mental status NL, Mood NL Nurse was there as cleaning and maintenance worker during examination Labs/Xrays Labs Test 05/01/25 10:52 Range/Units White Blood Count 5.9 4.4-10.8 10^3/uL Red Blood Count 4.07 4.0-5.20 10^6/uL Hemoglobin 12.8 12.2-16.2 g/dL Hematocrit 37.9 36.0-46.0 % Mean Corpuscular Volume 93.1 80.0-100.0 fL Mean Corpuscular Hemoglobin 31.5 28.0-32.0 pg Mean Corpuscular Hemoglobin Concent 33.9 32.0-36.0 g/dL Red Cell Distribution Width 14.7 H 11.8-14.3 % Platelet Count 440 140-450 10^3/uL Mean Platelet Volume 6.9 6.9-10.8 fL Neutrophils (%) (Auto) 50.3 37.0-80.0 % Lymphocytes (%) (Auto) 40.5 10.0-50.0 % Monocytes (%) (Auto) 7.8 0.0-12.0 % Eosinophils (%) (Auto) 0.8 0.0-7.0 % Basophils (%) (Auto) 0.6 0.0-2.0 % Neutrophils # (Auto) 3.0 1.6-8.6 10 ^3/uL Lymphocytes # (Auto) 2.4 0.4-5.4 10 ^3/uL Monocytes # (Auto) 0.5 0-1.3 10 ^3/uL Eosinophils # (Auto) 0 0-0.8 10 ^3/uL Basophils # (Auto) 0 0-0.2 10 ^3/uL Nucleated Red Blood Cells 0.1 % Prothrombin Time 11.0 9.3-11.8 sec Prothrombin Time INR 1.04 0.9-1.15 Activated Partial Thromboplast Time 25.2 24.5-34.5 SEC Sodium Level 138 136-145 mmol/L Potassium Level 3.9 3.5-5.1 mmol/L Chloride Level 103 98-107 mmol/L Carbon Dioxide Level 26 20-31 mmol/L Anion Gap 9 5-15 Blood Urea Nitrogen 9 9-23 mg/dL Creatinine 0.68 0.550-1.02 mg/dL Glomerular Filtration Rate Calc 93 >90 mL/min BUN/Creatinine Ratio 13.2 10.0-20.0 Serum Glucose 153 H 74-106 mg/dL Calcium Level 9.5 8.7-10.4 mg/dL SEPSIS Sepsis Screen Date sepsis recognized/suspect: May 01, 2025 Time Sepsis recognized/suspect: 941 Recent Procedure: No On Antibiotic Therapy: No Respiratory Rate >20: No Heart Rate >90: No Temp<36 C (96.8 F) or >38.3 C: No SBP <90 or MAP <65 mmHG: No New Acute Mental Status Change: No Is the patient on CPAP, BIPAP,: No Physician Orders Chest Portable (05/01/25 10:32) Urinalysis (05/01/25 10:32) * Cardiology Consult (05/01/25 10:34) Echo 2d Mode Cardiac Dop (05/01/25 12:19) Obtain Informed Consent For Cc (05/01/25 12:19) Obtain Consent For: (05/01/25 12:19) Obtain Consent For Anesthesia (05/01/25 12:19) Admit (05/01/25 15:32) Allergies (05/01/25 15:32) Code Status (05/01/25 15:32) Sodium Chloride Lock (Saline Lock Ns) (05/01/25 22:00) Sodium Chloride 0.9% (05/01/25 15:45) Hydrocodone-Acet 5/325mg Tab ([place] (05/01/25 15:45) Ondansetron Hcl (Zofran) (05/01/25 15:45) Enoxaparin Sodium (Lovenox) (05/02/25 10:00) Complete Blood Count (05/02/25 04:00) Comprehensive Metabolic Panel (05/02/25 04:00) Condition: Fair (05/01/25 15:32) Acetaminophen Tablet (Tylenol Tablet) (05/01/25 15:45) Nitroglycerin Sublingual (Ntrostat Subli (05/01/25 15:45) Morphine Sulfate Injection (05/01/25 15:45) Oxygen By Nasal Cannula (05/01/25 15:32) Stat Ekg For Chest Pain (05/01/25 15:32) Notify Md Of Changes From Base (05/01/25 15:32) Knock Out Hand For 24 Hours (05/01/25 15:32) Emergency Dysrhythmia Protocol (05/01/25 15:32) Rhythm Strips Once Every Shift (05/01/25 15:32) B-Type Natriuretic Peptide (05/01/25 15:32) Drug Screen (05/01/25 15:32) Hepatic Panel (05/01/25 15:32) Magnesium (05/01/25 15:32) Thyroid Stimulating Hormone (05/01/25 15:32) Electrocardigram (05/01/25 15:32) *Consult Dr. Maycol Lynn (05/01/25 16:07) Cardiac Diet-2gna,Lofat,Lochol (05/01/25 Dinner) Npo After Midnight (05/01/25 16:08) Vital Signs Date Time Temp Pulse Resp B/P (MAP) Pulse Ox O2 Delivery O2 Flow Rate FiO2 05/01/25 15:45 98.4 70 16 125/60 (81) 99 98.4 05/01/25 09:42 97.8 85 16 118/53 96 97.8 Laboratory Tests Test 05/01/25 10:52 White Blood Count 5.9 10^3/uL (4.4-10.8) Assessment/Plan Assessment/Plan Acute commuted displaced distal fibula and tibial fracture Mechanical fall without LOC - evident on x-ray - admit med surge - ortho consult - pain management - CXR and EKG for preoperative clearance GI PPX: Protonix VTE ppx: Lovenox Diet: NPO after midnight Goals of care addressed with the patient for more than 27 minutes: Full code status Case discussed with ,patient and nurse Plan discussed with: Patient My Orders Orders - JOSE CARLOS SEVERINO RESIDENT Procedure Category Date Status Time Admit ADMIT 05/01/25 Transmitted 15:32 Allergies KARLOS 05/01/25 In Process 15:32 Code Status CODE 05/01/25 Transmitted 15:32 Sodium Chloride Lock PHA 05/01/25 In Process (Saline Lock Ns) 22:00 Sodium Chloride 0.9% PHA 05/01/25 In Process 15:45 Hydrocodone-Acet PHA 05/01/25 In Process 5/325mg Tab ([place] 15:45 Ondansetron Hcl PHA 05/01/25 In Process (Zofran) 15:45 Enoxaparin Sodium PHA 05/02/25 In Process (Lovenox) 10:00 Complete Blood Count LAB 05/02/25 Verified 04:00 Comprehensive LAB 05/02/25 Verified Metabolic Panel 04:00 Condition: Fair KARLOS 05/01/25 In Process 15:32 Acetaminophen Tablet PHA 05/01/25 In Process (Tylenol Tablet) 15:45 Nitroglycerin PHA 05/01/25 In Process Sublingual (Ntrostat 15:45 Morphine Sulfate PHA 05/01/25 In Process Injection 15:45 Oxygen By Nasal RT 05/01/25 Transmitted Cannula 15:32 Stat Ekg For Chest KARLOS 05/01/25 In Process Pain 15:32 Notify Of Changes BANNER 05/01/25 In Process From Base 15:32 Knock Out Hand For BANNER 05/01/25 In Process 24 Hours 15:32 Emergency Dysrhythmia BANNER 05/01/25 In Process Protocol 15:32 Rhythm Strips Once BANNER 05/01/25 In Process Every Shift 15:32 B-Type Natriuretic LAB 05/01/25 In Process Peptide 15:32 Drug Screen LAB 05/01/25 Logged 15:32 Hepatic Panel LAB 05/01/25 In Process 15:32 Magnesium LAB 05/01/25 In Process 15:32 Thyroid Stimulating LAB 05/01/25 In Process Hormone 15:32 Electrocardigram EKG 05/01/25 Logged 15:32 *Consult Dr[address] Severino CONS 05/01/25 Transmitted Shane 16:07 Cardiac DIET 05/01/25 Verified Diet-2gna,Lofat,Lochol Dinner Npo After Midnight KARLOS 05/01/25 Verified 16:08 Date of Service: May 01, 2025 Billing Provider: ELSA QUINN MD Common Visit Codes: [id number] INP/OBS CARE (HIGH) Secondary Visit Codes: [id number] CARE PLAN 30 MINUTES JOSE CARLOS SEVERINO May 01, 2025 16:13 ELSA QUINN MD May 08, 2025 18:43
[2025-05-01 16:58] LABS: Alanine Aminotransferase 22.0 U/L (7-40); Albumin 4.4 g/dL (3.2-4.8); Alkaline Phosphatase 111.0 U/L (46-116); Bilirubin, Direct 0.1 mg/dL (<0.3); Magnesium 1.6 mg/dL (1.6-2.6); Total Protein 7.5 g/dL (5.7-8.2)
[2025-05-01 16:59] LABS: Bilirubin, Total 0.5 mg/dL (0.2-1.0)
[2025-05-01 22:05] VITALS: BP 132/69; PULSE 74; RESP 18; TEMP 97.8; O2SAT 97
[2025-05-01 22:18] VITALS: BP 132/69; PULSE 74; RESP 18; TEMP 97.8; O2SAT 97
[2025-05-01] MEDS ORDERED: HYDROcodone-ACET 5/325MG TAB ONE (22:48)
[2025-05-01] MEDS: HYDROcodone-ACET 5/325MG TAB PO PRN (22:52)
[2025-05-02] VITALS (8 sets, daily range): BP systolic 110–154; BP diastolic 66–80; PULSE 69–93; RESP 10–18; TEMP 97.8–98.4; O2SAT 88–97
[2025-05-02] MEDS: SODIUM CHLOR 0.9% PF (SALINE LOCK) 10ML VIAL/SYR IV SCH (00:23)
[2025-05-02] MEDS: SODIUM CHLORIDE 0.9% 1,000 ML IV SCH (02:42)
[2025-05-02 08:19] LABS: Hematocrit 34.2 % (36.0-46.0); Hemoglobin 12.0 g/dL (12.2-16.2); Mean Corpuscular Hemoglobin 32.3 pg (28.0-32.0); Mean Corpuscular Volume 92.5 fL (80.0-100.0); Nucleated Red Blood Cells % 0.0 %
[2025-05-02 08:32] LABS: Alanine Aminotransferase 20 U/L (7-40); Alkaline Phosphatase 88 U/L (46-116); Calcium 9.1 mg/dL (8.7-10.4); Carbon Dioxide 26 mmol/L (20-31); Chloride 106 mmol/L (98-107)
[2025-05-02 08:33] LABS: Albumin 3.9 g/dL (3.2-4.8); Anion Gap 10 (5-15); BUN/Creatinine Ratio 16.4 (10.0-20.0); Bilirubin, Total 0.5 mg/dL (0.2-1.0); Blood Urea Nitrogen 9 mg/dL (9-23); Glucose 100 mg/dL (74-106); Potassium 3.8 mmol/L (3.5-5.1); Sodium 142 mmol/L (136-145); Total Protein 6.6 g/dL (5.7-8.2)
--- NOTE | 2025-05-02 09:51 | DVHSR ---
APPROVED REPORT EXAM: Two-dimensional and M-mode echocardiogram with Doppler and color Doppler. Blood Pressure: 110/66 mmHg INDICATION Pre-Op CAD RISK FACTORS Height: 5', Weight: 130 DIMENSIONS LVDd4.4 (3.8-5.7cm)LA (2D)3.4 (1.9-4.0cm)Aortic Root (2.0-3.7cm) LVDs3.2 (2.5-4.0cm)LA (MM) (1.9-4.0cm)Aortic Cusp Exc (1.5-2.0cm) EF (%) 55.0 (55-70%)Rt. Atrium (1.9-4.0cm)Asc. Aorta cm IVSd1.1 (0.7-1.1cm)RV (D) (1.8-2.4cm) PWd0.8 (0.7-1.1cm) Mitral Valve MitralMitral Stenosis E/A ratio0.02D MVAcm2 Aortic Valve Aortic ValveAortic Stenosis V10.70m/Jeff Mean GR.4mmHg V21.35m/Jeff Peak GR.7mmHg LVOT Diameter2.0 (1.8-2.4cm)Doppler AVA1.63cm2 2D AVA1.71cm2 Tricuspid Valve TR Velocity2.13m/s [id number] Other Information Quality : Technically LimitedRhythm : Technically limited study due to body habitus and pt lying flat. Conclusion lvef 55% borderline lvh normal rv function normal atria no severe valve abnormalities noted
[2025-05-02] MEDS: ENOXAPARIN SOD 40 MG/0.4 ML SYRINGE SC SCH (10:00)
[2025-05-02] MEDS ORDERED: ceFAZolin 2 GM/D5W50ml 50 ML IV ONE (10:10)
[2025-05-02] MEDS ORDERED: LIDOCAINE 1% INJ PF 5ML AMP ONE (11:11)
[2025-05-02] MEDS ORDERED: PROPOFOL 10 MG/ML 20 ML IV ONE ×2 (11:11→12:35)
[2025-05-02] MEDS ORDERED: KETOROLAC TROMETH 30 MG/ML 1ML VIAL ONE (11:11)
[2025-05-02] MEDS ORDERED: GLYCOPYRROLATE 0.2 MG/ML 1ML VIAL ONE (11:11)
[2025-05-02] MEDS ORDERED: ONDANSETRON HCL 4 MG/2 ML VIAL ONE (11:11)
[2025-05-02] MEDS ORDERED: KETAMINE 50mg/ML 10ml Vial 10 ML ONE (11:11)
[2025-05-02] MEDS ORDERED: BUPIVACAINE/DEXTROSE MPF 0.75% 2 ML AMP IT ONE (11:30)
--- NOTE | 2025-05-02 12:11 | DVHINCON2 ---
Date of service: May 01, 2025 Reason for Consultation Right tibia/fibula fracture History of Present Illness 69 yo F sp mechanical fall 3 weeks ago with a displaced right tibia/fibula fracture/ Pain with adl. No cp/sob/abd pain/nausea/vomiting. Past Medical History PAST MEDICAL HISTORY: DM, Gout Surgical History: Denies all surgeries WELD TECHNICIAN History: No Pertinent WELD TECHNICIAN History Family History: Diabetes mellitus G8 MOTHER G8 FATHER Allergies: Coded Allergies: NO KNOWN ALLERGIES (Unverified , 09/02/22) Home Meds Active Scripts Acetaminophen (Tylenol 8 Hour Arthritis) 650 Mg Tab, 650 MG PO TID, #30 TAB Prov:ЮЛИЯ DAMON 04/15/25 Reported Medications Ciprofloxacin Hcl (Ciprofloxacin Hcl) 500 Mg Tab, 1 TAB PO Q12HR for 10 Days, #20 02/10/24 Progesterone Micronized (PROGESTERONE) 200 Mg Cap, 1 CAP PO DAILY 02/10/24 Estradiol Vaginal (Estradiol) 0.1 Mg/Gm Cre, 1 GM VA QWEEKLY Insert 1 gram by vaginal route every week for atrophic vaginitis. 02/10/24 Hydrocodone-Acetaminophen (Hydrocodone Bitartrate/AC 5-325 mg) 1 Tab Tab, 1 TAB PO Q6HR for 7 Days 02/10/24 Docusate Sodium (Colace) 100 Mg Cap, 1 CAP PO DAILY 02/10/24 Metformin HCl (Metformin Hydrochloride) 1,000 Mg Tab, 1 TAB PO BID, TAB 02/10/24 Allopurinol (Allopurinol) 300 Mg Tab, 300 MG PO HS, TAB 01/30/22 Atorvastatin Calcium (ATORVASTATIN CALCIUM) 20 Mg Tab, 1 TAB PO HS, #30 TAB 5 Refills 01/30/22 Insulin Glargine (Lantus) 100 Unit/Ml Inj, 30 UNIT SC QPM, INJ 01/30/22 Gabapentin (Gabapentin) 300 Mg Cap, 2 CAP PO DAILY 01/29/22 Aspirin (Aspir-Low) 81 Mg Tab, 81 MG PO DAILY for 30 Days, MG 01/29/22 Discontinued Reported Medications Tramadol Hcl (Tramadol Hcl) 50 Mg Tab, 1 TAB PO Q12HR 02/06/24 Current Medications Current Medications Medications (Trade) Dose Ordered Sig/Yudelka Route PRN Reason Start Time Stop Time Status Last Admin Sodium Chloride (Saline Lock Ns) 10 ml Q8HR IV 05/01/25 22:00 05/02/25 05:49 Sodium Chloride 1,000 ml @ 60 mls/hr [id number] IV 05/01/25 15:45 05/02/25 08:53 Acetaminophen/ Hydrocodone Bitart ([place] 5/325MG Tab) 1 tab Q4HP PRN PO MODERATE PAIN (4-6 PAIN SCALE) 05/01/25 15:45 05/01/25 22:52 Ondansetron HCl (Zofran) 4 mg Q4HP PRN IV NAUSEA / VOMITING 05/01/25 15:45 Enoxaparin Sodium (Lovenox) 40 mg DAILY SC 05/02/25 10:00 Acetaminophen (Tylenol Tablet) 650 mg Q6HP PRN PO PAIN SCALE 1-3 OR TEMP>100.4 05/01/25 15:45 Nitroglycerin (Ntrostat Sublingual) 0.4 mg Q5MINP PRN SL FOR CHEST PAIN 05/01/25 15:45 Morphine Sulfate 2 mg Q30M PRN IV FOR CHEST PAIN 05/01/25 15:45 Pantoprazole Sodium (Protonix Tablet) 40 mg DAILY@0600 PO 05/03/25 06:00 Cefazolin Sodium 50 ml @ 100 mls/hr Q8HR IV 05/02/25 14:00 05/03/25 06:29 UNV Review of Systems 10 Point ROS is neg except per HPI Vital Signs Vital Signs Date Time Temp Pulse Resp B/P (MAP) Pulse Ox O2 Delivery O2 Flow Rate FiO2 05/02/25 09:00 98.4 73 16 154/74 (100) 95 98.4 05/01/25 22:30 Room Air* 0 21 Physical Exam NAD Aox3 RLE: +TTP with swelling at tibia +ehl/fhl silt L3-S1 foot wwp Labs/Diagnostic Data Labs Test 05/02/25 06:55 05/01/25 10:52 Range/Units White Blood Count 5.5 4.4-10.8 10^3/uL Red Blood Count 3.70 L 4.0-5.20 10^6/uL Hemoglobin 12.0 L 12.2-16.2 g/dL Hematocrit 34.2 L 36.0-46.0 % Mean Corpuscular Volume 92.5 80.0-100.0 fL Mean Corpuscular Hemoglobin 32.3 H 28.0-32.0 pg Mean Corpuscular Hemoglobin Concent 35.0 32.0-36.0 g/dL Red Cell Distribution Width 14.9 H 11.8-14.3 % Platelet Count 385 140-450 10^3/uL Mean Platelet Volume 6.9 6.9-10.8 fL Neutrophils (%) (Auto) 44.6 37.0-80.0 % Lymphocytes (%) (Auto) 44.2 10.0-50.0 % Monocytes (%) (Auto) 9.0 0.0-12.0 % Eosinophils (%) (Auto) 1.7 0.0-7.0 % Basophils (%) (Auto) 0.5 0.0-2.0 % Neutrophils # (Auto) 2.4 1.6-8.6 10 ^3/uL Lymphocytes # (Auto) 2.4 0.4-5.4 10 ^3/uL Monocytes # (Auto) 0.5 0-1.3 10 ^3/uL Eosinophils # (Auto) 0.1 0-0.8 10 ^3/uL Basophils # (Auto) 0 0-0.2 10 ^3/uL Nucleated Red Blood Cells 0.0 % Sodium Level 142 136-145 mmol/L Potassium Level 3.8 3.5-5.1 mmol/L Chloride Level 106 98-107 mmol/L Carbon Dioxide Level 26 20-31 mmol/L Anion Gap 10 5-15 Blood Urea Nitrogen 9 9-23 mg/dL Creatinine 0.55 0.550-1.02 mg/dL Glomerular Filtration Rate Calc 98 >90 mL/min BUN/Creatinine Ratio 16.4 10.0-20.0 Serum Glucose 100 74-106 mg/dL Calcium Level 9.1 8.7-10.4 mg/dL Total Bilirubin 0.5 0.2-1.0 mg/dL Aspartate Amino Transferase (AST) 17 13-40 U/L Alanine Aminotransferase (ALT) 20 7-40 U/L Alkaline Phosphatase 88 46-116 U/L Total Protein 6.6 5.7-8.2 g/dL Albumin 3.9 3.2-4.8 g/dL Prothrombin Time 11.0 9.3-11.8 sec Prothrombin Time INR 1.04 0.9-1.15 Activated Partial Thromboplast Time 25.2 24.5-34.5 SEC Magnesium Level 1.6 1.6-2.6 mg/dL Direct Bilirubin 0.1 <0.3 mg/dL B-Type Natriuretic Peptide 32.73 0-100 pg/mL Thyroid Stimulating Hormone (TSH) 1.58 0.55-4.78 uIU/mL Plan/Recommendation Right displaced tibia/fibula fracture 1. I had a long and thorough discussion with patient regarding her condition. Questions for patient answered. Risks benefits options and alternative reviewed in depth. Risks include but not exclusive to bleeding infection nerve injury hardware failure nonunion malunion chronic pain blood clots cardiac and pulmonary complications amputation dislocation and . Patient understands the morbidity and mortality of tibia fractures. She wishes to proceed with surgery. 2. Plan for open reduction internal fixation of right tibia fracture 3. NPO/IVF 4. pain control Plan discussed with: Patient JOCELYN LOZANO MD May 02, 2025 12:11
--- NOTE | 2025-05-02 12:15 | DVHOP2 ---
Operative Report - 2 Report Details Date: 05/02/25 Preop Diagnosis: Right distal tibia/fibula fracture Postop Diagnosis: as above Surgeon: Maycol Lynn MD Trade Recruiter: Wilfredo BLOOM Anesthesiologist: Girish STEPHENS Anesthesia: Regional Implant: Orthoxcel proximal and distal screw see implant log Consent: The patient was informed of the risks and benefits of the procedure. These include but are not limited to complications of anesthesia, postoperative infection, incomplete relief of symptoms, recurrence of symptoms, damage to blood vessels, nerves and tendons, deep venous thrombosis, pulmonary embolism and possible need for repeat surgery in the future. Estimated Blood Loss: 20 cc Name of Procedure Performed 1. Open reduction internal fixation of right distal tibia fracture; 2. Intraop fluoroscopy Procedure Details Procedure Details: In the preoperative holding area, the consent was reviewed and the appropriate extremity was verified by the patient and marked with my initials. The patient was then transferred to the operating theatre. Appropriate anesthesia was induced. All bony prominences were well padded. A time out was performed verifying the side and site of surgery according to standard protocol. Preoperative antibiotics were given. Risks/benefits/options and alternatives were reviewed in depth with patient. Patient and family understand this. Risks include but not limited to bleeding, infection, nerve injury, hardware failure, malunion, nonunion, chronic pain, stiffness, amputation, deep venous thrombosis and . A right pneumatic thigh tourniquet was placed about the patient's thigh. The lower extremity was then scrubbed, prepped and draped in the usual aseptic manner. The lower extremity was elevated and exsanguinated using an Esmarch bandage. The tourniquet was then inflated. Patient had a soft tissue wound over fracture site with fracture blisters medially. Attention was then directed to the standard tibial nail technique. We made a 4 cm incision over the quadriceps for supra-patella approach, paratenon was split with layer kept intact, quadriceps was split. Using fluoro, we had correct start point with our entry pin on AP and lateral xray. We then put our starter reamer in place. We used manual reduction techniques in addition to to a stab incision at fracture site to help the reduction as she has a spiral fracture. We gentle reamed up to a 11.5. We then placed a 10 tibial nail. We did a staic screw proximally fluroscopy. Screws were deemed proper length. under perfect [place] technique we placed a distal screw. The tourniquet was deflated and prompt hemostasis was achieved. Local injection of lidocaine and marcaine plain was injected. The area was then copiously flushed with normal sterile saline and closed in a layered fashion utilizing 2-0 Vicryl and a 3-0 nylon. Dressings were then applied consisting of Adaptic, 4 x 4s, Prema, Kerlix and sterile Webril. Next, a multi-layer dressing consisting of cast padding and Stephan bandages were placed about to the patient's left leg distal to the patient's knee. A 5 inch posterior fiberglass splint was placed along the patient's posterior right leg with care taken to keep the foot at 90 degrees. Also, a U- shaped 4-inch fiberglass splint was placed from medial to lateral in a stirrup fashion for additional support. Additional Stephan bandages were placed over the fiberglass splint to keep them in place. Condition Good Disposition Still a Patient MAYCOL LYNN MD May 02, 2025 12:15
[2025-05-02] MEDS ORDERED: fentaNYL CITRATE 100 MCG/2 ML VL IV PRN (13:00)
[2025-05-02] MEDS ORDERED: ONDANSETRON HCL 4 MG/2 ML VIAL IV PRN (13:00)
[2025-05-02] MEDS ORDERED: FLUMAZENIL 0.1 MG/ML INJ 10ML MDV IV PRN (13:00)
[2025-05-02] MEDS ORDERED: hydrALAZINE HCL 20 MG/ML VL IV PRN ×2 (13:00→17:30)
[2025-05-02] MEDS ORDERED: NALOXONE HCL 0.4 MG/ML VIAL IV PRN (13:00)
[2025-05-02] MEDS ORDERED: HYDROmorphone HCL 2 MG/ML VL/or syr IV PRN (13:00)
--- NOTE | 2025-05-02 13:09 | DVH ---
FLUOROSCOPY TIME: 45 seconds TECHNIQUE: Intraoperative radiographs of the right tibia/ fibula were obtained. COMPARISON: XY R TIB FIB XRAY on DOS: 05/02/25, XY CHEST PORTABLE on DOS: 05/01/25, XY R ANKLE 3 VIEW o n DOS: 04/27/25, XY R FOOT 3 VIEW XRAY on DOS: 04/15/25, XY CHEST TWO VIEWS ROUTINE on DOS: 04/15/25 FINDINGS: Refer to intraoperative report for further evaluation. IMPRESSION: Refer to intraoperative report for further evaluation.
[2025-05-02] MEDS: ceFAZolin 1GM/50ML 50 ML IV SCH (15:51)
[2025-05-02] MEDS ORDERED: HYDROmorphone HCL 2 MG/ML VL/or syr IV ONE (16:15)
--- NOTE | 2025-05-02 16:16 | ECG ---
[facility] Test Date: 2025-05-02 Test Time: 04:29:30 Pat Name: MIKE COLINDRES Department: Respiratoy Room: 0222 A Gender: F Tester Electronic Scale: SALO : 1955 Requested By: JOCELYN LOZANO Order Number: [id number] Reading MD: Roshan Chavez Measurements Intervals [place] Rate: 74 P: 57 NV: 151 QRS: -45 QRSD: 84 T: 38 QT: 383 QTc: 425 Interpretive Statements Sinus rhythm Left axis deviation Low voltage, extremity and precordial leads Electronically Signed On 05-03-2025 18:12:35 PDT by Roshan Chavez Please click the below link to view image of tracing.
[2025-05-02] MEDS: HYDROMORPHONE HCL 1 MG/ML INJ IV ONE (17:14)
--- NOTE | 2025-05-02 17:32 | DVHPNRES ---
Progress Note Date Seen: May 02, 2025 Resident Creating Document: SHELIA SMITH RESIDENT Medical Necessity Reason Pt with a Central, PICC or Fol: No (RN) Subjective Review of Systems Sofia Caicedo is a 69 years old female with a PMH of HTN and gout presented to the ED with the chief complaints of Rt leg pain. Patient reported he has been having a fall on April 11 for which [facility]A delayed seeking medical attention, believing the injury was not serious however persistent pain prompting her to visit ED. patient reported she tripped and fell on the floor from which she has been having more difficulty with ambulating. She visited ortho clinic and they recommended surgery. PMH: HTN and good PSH: Cholecystectomy Family history: Noncontributory Social history: Lives with family. Denies smoking, alcohol and other drug abuse Allergies: No known allergies Home medications: Unable to recall Patient was seen today at bedside. Labs and chart reviewed. Patient status post. Open reduction internal fixation of right distal tibia fracture; 2. Intraop fluoroscopy. Ordered designated for pain. Objective vital signs Vital Sign Date Time Temp Pulse Resp B/P (MAP) Pulse Ox O2 Delivery O2 Flow Rate FiO2 05/02/25 17:14 69 16 126/80 05/02/25 17:00 98.3 88 98.3 05/02/25 08:00 Room Air* 0 21 Total Intake and Output 05/01/25 05/01/25 05/02/25 15:00 23:00 07:00 Intake Total 200 ml Balance 200 ml medications Current Medications Medications Dose Ordered Sig/Yudelka Route Start Time Stop Time Status Last Admin Dose Admin Sodium Chloride 10 ml Q8HR IV 05/01/25 22:00 05/02/25 14:00 10 ML Sodium Chloride 1,000 ml @ 60 mls/hr [id number] IV 05/01/25 15:45 05/02/25 08:53 60 MLS/HR Acetaminophen/ Hydrocodone Bitart 1 tab Q4HP PRN PO 05/01/25 15:45 05/02/25 15:44 1 TAB Ondansetron HCl 4 mg Q4HP PRN IV 05/01/25 15:45 Enoxaparin Sodium 40 mg DAILY SC 05/02/25 10:00 Acetaminophen 650 mg Q6HP PRN PO 05/01/25 15:45 Nitroglycerin 0.4 mg Q5MINP PRN SL 05/01/25 15:45 Morphine Sulfate 2 mg Q30M PRN IV 05/01/25 15:45 Pantoprazole Sodium 40 mg DAILY@0600 PO 05/03/25 06:00 Cefazolin Sodium 50 ml @ 100 mls/hr Q8HR IV 05/02/25 14:00 05/03/25 06:29 05/02/25 15:51 100 MLS/HR Oxycodone HCl 10 mg ONCE PRN PO 05/02/25 13:00 05/03/25 12:59 Examination General Appearance: Alert, Oriented X3, Cooperative, Not in acute distress HEENT: Atraumatic, Mucous membranes moist/pink Respiratory: Clear to auscultation, Normal air movement, No added sounds Cardiovascular: Regular rate, Normal S1, Normal S2, No murmurs Abdominal: Active bowel sounds, Soft, no distention, no tenderness Extremities: No edema, Normal pulses, Right lower extremity home orthotic boot, having tenderness Skin: No Significant rash, except past surgical scars Neuro: Normal speech, sensorimotor deficits none Psych/Mental Status: Mental status NL, Mood NL Nurse was there as fast food worker during examination laboratory and microbiology Laboratory Tests 05/02/25 06:55 Test 05/02/25 06:55 Range/Units Serum Glucose 100 74-106 mg/dL Problem List/Assessment/Plan Problem List/Assessment/Plan Assessment and plan Acute commuted displaced distal fibula and tibial fracture Mechanical fall without LOC -status post. Open reduction internal fixation of right distal tibia fracture; 2. Intraop fluoroscopy -pain medication as prescribed -continue IV fluid as prescribed #Hypertension -hydralazine PRN IV GI PPX: Protonix VTE ppx: Lovenox Goals of care addressed with the patient for more than 27 minutes: Full code status Case discussed with ,patient and nurse Plan discussed with: Patient Plan discussed with: Patient, Other (RN) My Orders My Orders Orders - SHELIA SMITH Procedure Category Date Status Time Pantoprazole Tablet PHA 05/03/25 In Process (Protonix Tablet) 06:00 Date of Service: May 02, 2025 Billing Provider: LANDEN BRAVO MD Common Visit Codes: [id number] INP/OBS CARE(HIGH) Secondary Visit Codes: [id number] CARE PLAN 30 MINUTES SHELIA SMITH May 02, 2025 17:32 LANDEN BRAVO MD May 10, 2025 19:56
[2025-05-02] MEDS: HYDROmorphone HCL 2 MG/ML VL/or syr IV PRN (20:07)
[2025-05-03 01:00] VITALS: BP 121/77; PULSE 86; RESP 16; TEMP 98.3; O2SAT 95
[2025-05-03 05:00] VITALS: BP 131/80; PULSE 87; RESP 16; TEMP 98.1; O2SAT 97
[2025-05-03] MEDS: PANTOPRAZOLE 40 MG TAB PO SCH (06:02)
[2025-05-03] MEDS ORDERED: DEXTROSE (50%) 50ML SYRG IV PRN (07:30)
[2025-05-03 08:00] VITALS: PULSE 81; RESP 20; O2SAT 97
--- NOTE | 2025-05-03 08:02 | DVHPN2 ---
Progress Note Date Seen: May 03, 2025 Medical Necessity Reason Pt with a Central, PICC or Fol: No (RN) Subjective Patient reports: No new complaints Objective vital signs Vital Sign Date Time Temp Pulse Resp B/P (MAP) Pulse Ox O2 Delivery O2 Flow Rate FiO2 05/03/25 06:33 75 18 104/60 05/03/25 05:00 98.1 97 98.1 05/02/25 20:00 Room Air* 0 21 Total Intake and Output 05/02/25 05/02/25 05/03/25 15:00 23:00 07:00 Intake Total 100 ml 530 ml 400 ml Balance 100 ml 530 ml 400 ml medications Current Medications Medications Dose Ordered Sig/Yudelka Route Start Time Stop Time Status Last Admin Dose Admin Sodium Chloride 10 ml Q8HR IV 05/01/25 22:00 05/03/25 06:02 10 ML Sodium Chloride 1,000 ml @ 60 mls/hr [id number] IV 05/01/25 15:45 05/03/25 02:26 60 MLS/HR Acetaminophen/ Hydrocodone Bitart 1 tab Q4HP PRN PO 05/01/25 15:45 05/03/25 07:46 1 TAB Ondansetron HCl 4 mg Q4HP PRN IV 05/01/25 15:45 Enoxaparin Sodium 40 mg DAILY SC 05/02/25 10:00 Acetaminophen 650 mg Q6HP PRN PO 05/01/25 15:45 Nitroglycerin 0.4 mg Q5MINP PRN SL 05/01/25 15:45 Morphine Sulfate 2 mg Q30M PRN IV 05/01/25 15:45 Pantoprazole Sodium 40 mg DAILY@0600 PO 05/03/25 06:00 05/03/25 06:02 40 MG Oxycodone HCl 10 mg ONCE PRN PO 05/02/25 13:00 05/03/25 12:59 Hydralazine HCl 10 mg Q6HP PRN IV 05/02/25 17:30 Hydromorphone HCl 0.25 mg Q4HPRN PRN IV 05/02/25 17:30 05/03/25 06:03 0.25 MG Insulin Glargine 30 units QPM SC 05/03/25 18:00 UNV Diagnostic Test (Pha) 1 strip ACHS 05/03/25 11:30 UNV Insulin Human Regular ACHS SC 05/03/25 11:30 UNV Dextrose 50 ml UD PRN IV 05/03/25 07:30 UNV Aspirin 81 mg DAILY PO 05/03/25 10:00 UNV Atorvastatin Calcium 20 mg HS PO 05/03/25 22:00 UNV Docusate Sodium 100 mg DAILY PO 05/03/25 10:00 UNV Examination: GENERAL:Normal laboratory and microbiology Laboratory Tests 05/02/25 06:55 Test 05/02/25 06:55 Range/Units Serum Glucose 100 74-106 mg/dL Problem List/Assessment/Plan Problem List/Assessment/Plan 69 year old female who is s/p Right tibial nailing POD 1 1. pain control 2. WBAT RLE with cam boot in place 3. dressings to remain in palce for 2 weeks 4. follow up in [facility] otho clinic in 2 weeks 5. clear for discharge from orthopedic standpoint 6. physial therapy as tolerated Plan discussed with: Patient Date of Service: May 03, 2025 Billing Provider: JOCELYN LOZANO MD Common Visit Codes: NOT BILLABLE ARIADNA PRUETT NP May 03, 2025 08:02
[2025-05-03 08:50] LABS: Anion Gap 11 (5-15); Carbon Dioxide 24 mmol/L (20-31); Chloride 103 mmol/L (98-107); Potassium 3.8 mmol/L (3.5-5.1); Sodium 138 mmol/L (136-145)
[2025-05-03 08:51] LABS: Calcium 8.8 mg/dL (8.7-10.4)
[2025-05-03 08:56] LABS: BUN/Creatinine Ratio 22.8 (10.0-20.0); Blood Urea Nitrogen 13 mg/dL (9-23)
[2025-05-03 08:57] LABS: Glucose 266 mg/dL (74-106)
[2025-05-03 09:02] LABS: Hematocrit 31.3 % (36.0-46.0); Hemoglobin 10.4 g/dL (12.2-16.2); Mean Corpuscular Hemoglobin 30.6 pg (28.0-32.0); Mean Corpuscular Volume 92.2 fL (80.0-100.0); Nucleated Red Blood Cells % 0.0 %
[2025-05-03 09:10] VITALS: BP 119/69; PULSE 81; RESP 20; TEMP 97.7; O2SAT 97
[2025-05-03] MEDS: DOCUSATE SOD 100 MG CAP PO SCH (10:39)
[2025-05-03] MEDS: ASPirin-EC 81 mg tab PO SCH (10:39)
--- NOTE | 2025-05-03 10:59 | DVHDSRES ---
Discharge Summary Date of Admission Resident Creating Document: SHELIA SMITH RESIDENT May 01, 2025 at 15:32 Date of Discharge: May 03, 2025 Admitting Diagnosis Acute commuted displaced distal fibula and tibial fracture Mechanical fall without LOC Labs/Diagnostic Data: Laboratory Results Test 05/03/25 07:39 05/03/25 06:12 05/02/25 06:55 05/01/25 10:52 White Blood Count 8.2 10^3/uL (4.4-10.8) Red Blood Count 3.39 10^6/uL (4.0-5.20) Hemoglobin 10.4 g/dL (12.2-16.2) Hematocrit 31.3 % (36.0-46.0) Mean Corpuscular Volume 92.2 fL (80.0-100.0) Mean Corpuscular Hemoglobin 30.6 pg (28.0-32.0) Mean Corpuscular Hemoglobin Concent 33.2 g/dL (32.0-36.0) Red Cell Distribution Width 15.1 % (11.8-14.3) Platelet Count 339 10^3/uL (140-450) Mean Platelet Volume 7.3 fL (6.9-10.8) Neutrophils (%) (Auto) 78.0 % (37.0-80.0) Lymphocytes (%) (Auto) 15.4 % (10.0-50.0) Monocytes (%) (Auto) 6.5 % (0.0-12.0) Eosinophils (%) (Auto) 0.0 % (0.0-7.0) Basophils (%) (Auto) 0.1 % (0.0-2.0) Neutrophils # (Auto) 6.4 10 ^3/uL (1.6-8.6) Lymphocytes # (Auto) 1.3 10 ^3/uL (0.4-5.4) Monocytes # (Auto) 0.5 10 ^3/uL (0-1.3) Eosinophils # (Auto) 0 10 ^3/uL (0-0.8) Basophils # (Auto) 0 10 ^3/uL (0-0.2) Nucleated Red Blood Cells 0.0 % Sodium Level 138 mmol/L (136-145) Potassium Level 3.8 mmol/L (3.5-5.1) Chloride Level 103 mmol/L (98-107) Carbon Dioxide Level 24 mmol/L (20-31) Anion Gap 11 (5-15) Blood Urea Nitrogen 13 mg/dL (9-23) Creatinine 0.57 mg/dL (0.550-1.02) Glomerular Filtration Rate Calc 97 mL/min (>90) BUN/Creatinine Ratio 22.8 (10.0-20.0) Serum Glucose 266 mg/dL (74-106) Calcium Level 8.8 mg/dL (8.7-10.4) POC Glucose 284 mg/dl (70-106) Total Bilirubin 0.5 mg/dL (0.2-1.0) Aspartate Amino Transferase (AST) 17 U/L (13-40) Alanine Aminotransferase (ALT) 20 U/L (7-40) Alkaline Phosphatase 88 U/L (46-116) Total Protein 6.6 g/dL (5.7-8.2) Albumin 3.9 g/dL (3.2-4.8) Prothrombin Time 11.0 sec (9.3-11.8) Prothrombin Time INR 1.04 (0.9-1.15) Activated Partial Thromboplast Time 25.2 SEC (24.5-34.5) Magnesium Level 1.6 mg/dL (1.6-2.6) Direct Bilirubin 0.1 mg/dL (<0.3) B-Type Natriuretic Peptide 32.73 pg/mL (0-100) Thyroid Stimulating Hormone (TSH) 1.58 uIU/mL (0.55-4.78) Other Laboratory Tests 05/03/25 07:39 Brief Hx & Hospital Course: Patient is 69 years old female with a PMH of HTN and gout presented to the ED with the chief complaints of Rt leg pain. Patient reported he has been having a fall on April 11 for which [facility] delayed seeking medical attention, believing the injury was not serious however persistent pain prompting her to visit ED. patient reported she tripped and fell on the floor from which she has been having more difficulty with ambulating. She visited ortho clinic and they recommended surgery. On my assessment patient denies loss of consciousness, trauma, dizziness, fever, nausea, vomiting, chest pain, and other associated symptoms. Patient is status post. Open reduction internal fixation of right distal tibia fracture; Intraop fluoroscopy. Post surgery patient's pain was well controlled. Surgery cleared for discharge. Recommended for WBAT RLE with cam boot in place, dressings to remain in palce for 2 weeks, follow up in [facility] otho clinic in 2 weeks, physial therapy as tolerated. Patient was advised to follow up with her primary care physician in 1-2 weeks. patient was advised to resume her home medications. Patient was hemodynamically stable on discharge. Condition at Discharge: Stable Final Diagnosis/Problems List Acute commuted displaced distal fibula and tibial fracture Mechanical fall without LOC -status post. Open reduction internal fixation of right distal tibia fracture; Intraop fluoroscopy #Hypertension Diabetes mellitus type 2 Gout Discharge Disposition: Home Discharge Instruct/Medications Diet: Consistent carbohydrate, Cardiac 2g Na,low cholest Follow Up/Referral: Weight bearing as tolerated right lower extremity with cam boot in place dressings to remain in palce for 2 weeks follow up in [facility] ot clinic in 2 weeks physial therapy as tolerated Medications: Pain medication as prescribed Please resume other home medications Scheduled Acetaminophen (Tylenol 8 Hour Arthritis), 650 MG PO TID Allopurinol (Allopurinol), 300 MG PO HS, (Reported) Aspirin (Aspir-Low), 81 MG PO DAILY, (Reported) Atorvastatin Calcium (Atorvastatin Calcium), 1 TAB PO HS, (Reported) Ciprofloxacin Hcl (Ciprofloxacin Hcl), 1 TAB PO Q12HR, (Reported) Docusate Sodium (Colace), 1 CAP PO DAILY, (Reported) Estradiol Vaginal (Estradiol), 1 GM VA QWEEKLY, (Reported) Gabapentin (Gabapentin), 2 CAP PO DAILY, (Reported) Hydrocodone-Acetaminophen (Hydrocodone Bitartrate/AC 5-325 mg), 1 TAB PO Q6HR, (Reported) Insulin Glargine (Lantus), 30 UNIT SC QPM, (Reported) Metformin HCl (Metformin Hydrochloride), 1 TAB PO BID, (Reported) Progesterone Micronized (Progesterone), 1 CAP PO DAILY, (Reported) Discharge Statement: "Patient was advised to return to the ER or call 911 if any headaches, dizziness, shortness of breath, chest pain, abdominal pain, bleeding, fevers, or worsening of medical condition. Patient was counseled about treatment plan, medications, possible side effects, patientverbalized understanding. All questions were answered to the best of my ability. This discharge took greater then 30 minutes in planning, reviewing documentation, counseling the patient, and discussing with other team members." ASSESSMENT ASSESSMENT Assessment as above Date of Service: May 03, 2025 Billing Provider: LANDEN BRAVO MD Common Visit Codes: 53598-DKD/OBS DISCH DAY >30min SHELIA SMITH May 03, 2025 10:59 LANDEN BRAVO MD May 10, 2025 19:56
[2025-05-03] MEDS: ACCU-CHEK COMFORT CURVE STRIP VI SCH (11:30)
[2025-05-03] MEDS: InsuLIN REG 1unit/0.01ml Soln (100units/ml) SC SCH (13:15)
[2025-05-03 13:34] VITALS: BP 116/58; PULSE 54; RESP 17; TEMP 97.8; O2SAT 99
[2025-05-03 14:09] VITALS: BP 116/58; PULSE 54; RESP 17; TEMP 36.6; O2SAT 99
[2025-05-03] MEDS ORDERED: INSULIN LANTUS (GLARGINE) 1 /0.01ml (100units/ml) SC SCH (18:00)
[2025-05-03] MEDS ORDERED: ATORVASTATIN 20 MG TAB PO SCH (22:00)
== END 2025-05-03 16:30 | disposition home health service (06) | DRG 494 ==
LOC: ER 09:38 → OVERFLOW 15:32 → CENTRAL 22:05
PROVIDERS: ADMIT Internal Medicine Geriatric Medicine; ATTEND Internal Medicine Geriatric Medicine
PROC: 0QSG04Z Reposition Right Tibia with Internal Fixation Device, Open Approach (ICD-10-PCS; principal; 2025-05-02 11:20)
DX: S82.391A Other fracture of lower end of right tibia, initial encounter for closed fracture (principal); M10.9 Gout, unspecified; I10 Essential (primary) hypertension; S82.831A Other fracture of upper and lower end of right fibula, initial encounter for closed fracture; E11.9 Type 2 diabetes mellitus without complications; Z83.3 Family history of diabetes mellitus; Z79.2 Long term (current) use of antibiotics; Z79.84 Long term (current) use of oral hypoglycemic drugs; Z79.4 Long term (current) use of insulin; Z79.899 Other long term (current) drug therapy; Z79.82 Long term (current) use of aspirin; Z90.49 Acquired absence of other specified parts of digestive tract; W18.39XA Other fall on same level, initial encounter; Y93.89 Activity, other specified; Y92.89 Other specified places as the place of occurrence of the external cause; Y99.8 Other external cause status
CPT/HCPCS: 36415; 71045; 73590; 76000; 80048; 80053; 80076; 82962; 83735; 83880; 84443; 85025; 85610; 85730; 86850; 86900; 86901; 93005; 93306; 96374; 97163; G0378; J1100; J1815; J1885; J2405; J2704

== ENCOUNTER 2025-07-04 10:50 | Outpatient (CLI) | payer OTHER, MEDICARE ==
[~2025-07-04 10:50] MED LIST changes: -TRAM50TA2 PO
[2025-07-04 11:28] LABS: Hematocrit 37.1 % (36.0-46.0); Hemoglobin 12.2 g/dL (12.2-16.2); Mean Corpuscular Hemoglobin 30.4 pg (28.0-32.0); Mean Corpuscular Volume 92.3 fL (80.0-100.0); Nucleated Red Blood Cells % 0.0 %
[2025-07-04 11:42] LABS: Chloride 104 mmol/L (98-107); Potassium 4.2 mmol/L (3.5-5.1); Sodium 140 mmol/L (136-145)
[2025-07-04 11:43] LABS: Anion Gap 8 (5-15); Carbon Dioxide 28 mmol/L (20-31)
[2025-07-04 11:44] LABS: Calcium 9.5 mg/dL (8.7-10.4)
[2025-07-04 11:48] LABS: BUN/Creatinine Ratio 22.2 (10.0-20.0); Blood Urea Nitrogen 14 mg/dL (9-23); Glucose 95 mg/dL (74-106)
[2025-07-04 11:54] LABS: Urine Protein, UAD Negative (Negative)
== END 2025-07-04 17:00 | disposition home or self-care (01) ==
LOC: LAB 10:50
PROVIDERS: ATTEND Student in an Organized Health Care Education/Training Program
DX: E11.9 Type 2 diabetes mellitus without complications (principal)
CPT/HCPCS: 36415; 80048; 81001; 83036; 85025